=== PATIENT | male | born 1950 | race Caucasian/White ===

== ENCOUNTER 2017-10-09 19:15 | Emergency (ER) | payer MEDICARE, OTHER, SELFPAY ==
[2017-10-09 19:19] VITALS: BP 135/80; PULSE 91; RESP 16; TEMP 36.9; O2SAT 96
--- NOTE | 2017-10-09 19:52 | ED.GENADUL ---
Disposition Clinical Impression: Atopic dermatitis Disposition: HOME Condition: Stable Instructions: Dermatitis (ED) Additional Instructions: Apply the cream every 8 hours for the next 7 days if seeing improvement of symptoms. If symptoms worsen after 24 hours of use please stop cream immediately and contact her concrete finishing machine operator or primary care provider for reassessment. It is encouraged that you follow-up with them in the next 7 days for reexamination or earlier for worsening symptoms. For any fever chills, rapid spread of the rash, joint swelling, or severe concerns please feel free to return to the emergency department for reexamination. Referrals: [facility] [Outside] - 1 week (Please call your primary care provider at the [facility] or your concrete finishing machine operator for reexamination within the next week.) Medical Decision Making - Medical Decision Making Patient presenting to the emergency department for chief complaint of rash to his feet. Rash has an appearance of atopic dermatitis with some clear weeping but also has some petechia at the edge of the rash and is non-blanchable. Patient had been diagnosed with athlete's foot and use what he thought was a clotrimazole cream for 2 weeks which he only had progressing and worsening of symptoms. Patient did stop clotrimazole 3 days ago and is continued to have worsening of symptoms. Physical exam is benign except for mild papular rash on the flanks with some petechiae being seen on the right flank. Given petechial rash CBC was drawn but patient has no systemic symptoms of illness and so while rashes not clear in its nature some sort of dermatitis or possible reaction to the clotrimazole cream is considered. After review of CBC with differential that shows appropriate platelet count but mild anemia which is at patient's baseline patient reassessed. Patient had no new or worsening symptoms so plan to treat as dermatitis and give patient steroid cream to see if this resolves symptoms but patient was strongly encouraged to contact his primary care provider and/or concrete finishing machine operator for reassessment. Patient was also instructed that if he uses the hydrocortisone cream for 24 hours and notices any severe worsening of symptoms that he should stop this immediately and call for reassessment. Patient encouraged to return immediately to the emergency department for any significant change in his symptoms. After discussion of diagnosis and plan of care with patient patient agreed and stated no further needs, questions, or concerns at this time. History of Present Illness - General Chief complaint: RashLesion Stated complaint: REACTION ON FEET Time Seen by Provider: 10/09/17 19:30 Source: patient, RN notes reviewed Mode of arrival: ambulatory Limitations: no limitations - History of Present Illness Initial comments: Patient states a couple weeks ago he noticed some redness in between his toes which he saw a concrete finishing machine operator at the [facility] and she diagnosed him with athlete's foot and placed him on cream. He stopped this cream on Sunday when he noticed the redness worsening and traveling up his foot and after stopping the cream he continued and knows worsening symptoms yesterday and today with now rash area starting to weep clear fluid and continue to again spread further up the foot and ankle. Patient denies any fever chills, headache, difficulty breathing. 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 Onset/Timin -: week(s) Location: lower extremity (Feet) Associated Symptoms: denies other symptoms Treatments Prior to Arrival: none - Related Data Levothyroxine Sodium 75 mcg PO DAILY 04/29/15 Omeprazole 20 mg PO DAILY 04/29/15 Simvastatin 40 mg PO HS 04/29/15 Finasteride 5 mg PO DAILY AM 06/28/15 Tamsulosin HCl 0.4 mg PO DAILY AM 06/28/15 Trazodone HCl 100 mg PO HS PRN 06/28/15 Cyclobenzaprine [Flexeril] 10 mg PO HS PRN 12/07/16 Naproxen 500 mg PO BID PRN 12/07/16 Aspirin 81 mg PO DAILY #90 tab-cap 03/22/17 Docusate Sodium [Colace] 200 mg PO BID tab-cap 03/22/17 Ascorbic Acid [Vitamin C] 500 mg PO DAILY tab.chew 05/07/17 Cyanocobalamin (Vitamin B-12) [Vitamin B12] 500 mcg PO DAILY 05/07/17 Gabapentin 800 mg PO TID #270 tab-cap 05/07/17 Lidocaine/Menthol [[place] 4%-1% Patch] PRN 07/01/17 Cholecalciferol (Vitamin D3) [Vitamin D3] 1 tab PO DAILY 09/06/17 Risperidone 0 PO DAILY tab-cap 09/06/17 Allergies Allergy/AdvReac Type Severity Reaction Status Date / Time Milk Containing Products AdvReac Intermediate Nausea Unverified 10/09/17 19:21 Review of Systems Constitutional: denies: chills, fever, malaise Eyes: denies: vision change ENT: denies: throat pain Respiratory: denies: cough, shortness of breath Cardiovascular: edema (Chronic and ongoing no recent changes). denies: chest pain Gastrointestinal: denies: abdominal pain Musculoskeletal: denies: joint swelling Skin: as per HPI, rash Neurological: denies: headache Hematological/Lymphatic: denies: easy bleeding, easy bruising Past Medical History - Past Medical History Medical history: cancer, GERD, hyperlipidemia, seizures hypothyroidism, neuro myoclonis (tremors), prostate cancer, keloids, GERD, high cholesterol, L4-L5 stenosis Surgical history: other (cataracts, club foot as child, trigger release, cyst removed) - Social History Smoking status: never smoker Alcohol use: none Drug use: none Living Situation: lives with family General Exam - General Limitations: no limitations General appearance: alert, in no apparent distress - Head Head exam: Present: atraumatic, normocephalic, normal inspection - Eye Eye exam: Present: normal apperance - ENT ENT exam: Present: normal exam, normal orophraynx - Neck Neck exam: Present: normal inspection, full ROM. Absent: meningismus, lymphadenopathy - Respiratory Respiratory exam: Present: normal lung sounds bilaterally. Absent: respiratory distress - Cardiovascular Cardiovascular Exam: Present: regular rate, normal rhythm, normal heart sounds. Absent: tachycardia, systolic murmur, diastolic murmur, rubs, gallop, clicks - Extremities Exam Extremities exam: Present: pedal edema (1+ equal bilateral) - Back Exam Back exam: Present: rash noted (On bilateral flanks with some erythematous macules and small sporadic petechia) - Neurological Exam Neurological exam: Present: alert, oriented X3. Absent: altered - Skin Skin exam: Present: warm, petechiae (Beyond rash noted above on flanks patient also has erythematous scaly type rash on the feet with clear weeping and drainage from small fissures seen within the rash and then petechial redness coming up the foot. Rash is non-blanchable.). Absent: vesicles Course Vital Signs - 24 hr 10/09/17 19:19 Temperature 36.9 C Pulse 91 H Respiratory 16 Rate Blood Pressure 135/80 Pulse Oximetry 96
--- NOTE | 2017-10-09 19:57 | ED.GENADUL_ITS ---
Disposition Clinical Impression: Atopic dermatitis Disposition: HOME Condition: Stable Instructions: Dermatitis (ED) Additional Instructions: Apply the cream every 8 hours for the next 7 days if seeing improvement of symptoms. If symptoms worsen after 24 hours of use please stop cream immediately and contact her stevedoring supervisor or primary care provider for reassessment. It is encouraged that you follow-up with them in the next 7 days for reexamination or earlier for worsening symptoms. For any fever chills, rapid spread of the rash, joint swelling, or severe concerns please feel free to return to the emergency department for reexamination. Referrals: [facility] [Outside] - 1 week (Please call your primary care provider at the [facility] or your stevedoring supervisor for reexamination within the next week. ) Medical Decision Making - Medical Decision Making Patient presenting to the emergency department for chief complaint of rash to his feet. Rash has an appearance of atopic dermatitis with some clear weeping but also has some petechia at the edge of the rash and is non-blanchable. Patient had been diagnosed with athlete's foot and use what he thought was a clotrimazole cream for 2 weeks which he only had progressing and worsening of symptoms. Patient did stop clotrimazole 3 days ago and is continued to have worsening of symptoms. Physical exam is benign except for mild papular rash on the flanks with some petechiae being seen on the right flank. Given petechial rash CBC was drawn but patient has no systemic symptoms of illness and so while rashes not clear in its nature some sort of dermatitis or possible reaction to the clotrimazole cream is considered. After review of CBC with differential that shows appropriate platelet count but mild anemia which is at patient's baseline patient reassessed. Patient had no new or worsening symptoms so plan to treat as dermatitis and give patient steroid cream to see if this resolves symptoms but patient was strongly encouraged to contact his primary care provider and/or stevedoring supervisor for reassessment. Patient was also instructed that if he uses the hydrocortisone cream for 24 hours and notices any severe worsening of symptoms that he should stop this immediately and call for reassessment. Patient encouraged to return immediately to the emergency department for any significant change in his symptoms. After discussion of diagnosis and plan of care with patient patient agreed and stated no further needs, questions, or concerns at this time. History of Present Illness - General Chief complaint: RashLesion Stated complaint: REACTION ON FEET Time Seen by Provider: 10/09/17 19:30 Source: patient, RN notes reviewed Mode of arrival: ambulatory Limitations: no limitations - History of Present Illness Initial comments: Patient states a couple weeks ago he noticed some redness in between his toes which he saw a stevedoring supervisor at the [facility] and she diagnosed him with athlete's foot and placed him on cream. He stopped this cream on Sunday when he noticed the redness worsening and traveling up his foot and after stopping the cream he continued and knows worsening symptoms yesterday and today with now rash area starting to weep clear fluid and continue to again spread further up the foot and ankle. Patient denies any fever chills, headache, difficulty breathing. 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 Onset/Timin -: week(s) Location: lower extremity (Feet) Associated Symptoms: denies other symptoms Treatments Prior to Arrival: none - Related Data Levothyroxine Sodium 75 mcg PO DAILY 04/29/15 Omeprazole 20 mg PO DAILY 04/29/15 Simvastatin 40 mg PO HS 04/29/15 Finasteride 5 mg PO DAILY AM 06/28/15 Tamsulosin HCl 0.4 mg PO DAILY AM 06/28/15 Trazodone HCl 100 mg PO HS PRN 06/28/15 Cyclobenzaprine [Flexeril] 10 mg PO HS PRN 12/07/16 Naproxen 500 mg PO BID PRN 12/07/16 Aspirin 81 mg PO DAILY #90 tab-cap 03/22/17 Docusate Sodium [Colace] 200 mg PO BID tab-cap 03/22/17 Ascorbic Acid [Vitamin C] 500 mg PO DAILY tab.chew 05/07/17 Cyanocobalamin (Vitamin B-12) [Vitamin B12] 500 mcg PO DAILY 05/07/17 Gabapentin 800 mg PO TID #270 tab-cap 05/07/17 Lidocaine/Menthol [[place] 4%-1% Patch] PRN 07/01/17 Cholecalciferol (Vitamin D3) [Vitamin D3] 1 tab PO DAILY 09/06/17 Risperidone 0 PO DAILY tab-cap 09/06/17 Allergies Allergy/AdvReac Type Severity Reaction Status Date / Time Milk Containing Products AdvReac Intermediate Nausea Unverified 10/09/17 19:21 Review of Systems Constitutional: denies: chills, fever, malaise Eyes: denies: vision change ENT: denies: throat pain Respiratory: denies: cough, shortness of breath Cardiovascular: edema (Chronic and ongoing no recent changes). denies: chest pain Gastrointestinal: denies: abdominal pain Musculoskeletal: denies: joint swelling Skin: as per HPI, rash Neurological: denies: headache Hematological/Lymphatic: denies: easy bleeding, easy bruising Past Medical History - Past Medical History Medical history: cancer, GERD, hyperlipidemia, seizures hypothyroidism, neuro myoclonis (tremors), prostate cancer, keloids, GERD, high cholesterol, L4-L5 stenosis Surgical history: other (cataracts, club foot as child, trigger release, cyst removed) - Social History Smoking status: never smoker Alcohol use: none Drug use: none Living Situation: lives with family General Exam - General Limitations: no limitations General appearance: alert, in no apparent distress - Head Head exam: Present: atraumatic, normocephalic, normal inspection - Eye Eye exam: Present: normal apperance - ENT ENT exam: Present: normal exam, normal orophraynx - Neck Neck exam: Present: normal inspection, full ROM. Absent: meningismus, lymphadenopathy - Respiratory Respiratory exam: Present: normal lung sounds bilaterally. Absent: respiratory distress - Cardiovascular Cardiovascular Exam: Present: regular rate, normal rhythm, normal heart sounds. Absent: tachycardia, systolic murmur, diastolic murmur, rubs, gallop, clicks - Extremities Exam Extremities exam: Present: pedal edema (1+ equal bilateral) - Back Exam Back exam: Present: rash noted (On bilateral flanks with some erythematous macules and small sporadic petechia) - Neurological Exam Neurological exam: Present: alert, oriented X3. Absent: altered - Skin Skin exam: Present: warm, petechiae (Beyond rash noted above on flanks patient also has erythematous scaly type rash on the feet with clear weeping and drainage from small fissures seen within the rash and then petechial redness coming up the foot. Rash is non-blanchable.). Absent: vesicles Course Vital Signs - 24 hr 10/09/17 19:19 Temperature 36.9 C Pulse 91 H Respiratory 16 Rate Blood Pressure 135/80 Pulse Oximetry 96
[2017-10-09 21:00] LABS: Abs Immature Grans 0.02 k/cumm (0.0-0.09); Absolute Basophil Count 0.01 k/cumm (0.0-0.2); Absolute Eosinophil Count 0.35 k/cumm (0.0-0.7); Absolute Lymphocyte Count 1.45 k/cumm (1.2-3.4); Absolute Monocyte Count 0.49 k/cumm (0.11-0.7); Absolute Neutrophil Count 4.27 k/cumm (1.2-6.7); Basophils % 0.2; Eosinophils % 5.3; HCT 38.1 % (40.0-50.0); HGB 12.1 g/dL (13.5-17.5); Immature Grans % 0.3; Mean Corp. HGB Concentration 31.8 g/dL (32.0-36.0); Mean Corpuscular Hemoglobin 29.2 pg (27.0-33.0); Mean Corpuscular Volume 91.8 fL (80-95); Mean Platelet Volume 11.1 fL (8.0-11.0); Monocytes % 7.4; Neutrophils % 64.8; Platelet Count 154 x1000/uL (130-400); RBC 4.15 m/cumm (4.50-6.00); White Blood Cell Count 6.59 k/cumm (4.4-10.8)
[2017-10-09 21:24] VITALS: BP 140/74; PULSE 76; RESP 16; O2SAT 97
[2017-10-09] MEDS: Hydrocortisone 1% CR 30 GM TUBE TP (21:24)
== END 2017-10-09 20:30 | disposition home or self-care (01) ==
PROVIDERS: Nurse Practitioner Family; Emergency Provider Emergency Medicine
DX: L20.9 Atopic dermatitis, unspecified (principal)
CPT/HCPCS: 99283; 85025

== ENCOUNTER 2017-11-26 09:48 | Emergency (ER) | payer MEDICARE, OTHER, SELFPAY ==
[2017-11-26 10:01] VITALS: BP 135/76; PULSE 85; RESP 16; TEMP 36.5; O2SAT 98
--- NOTE | 2017-11-26 10:53 | W.ED.GENAD ---
Discharge Plan Disposition Patient Disposition: HOME Condition: Stable Discharge Details Chief Complaint: Nk/Back Pain Clinical Impression: Lumbago Primary Care Provider: [facility] ED Provider: Martin Duggan Meds and New Rx's Prescriptions: New methylprednisolone [Medrol (Skip)] 4 mg tablets,dose pack 4 mg PO DAILY Qty: 21 RF: 0 oxycodone-acetaminophen [Percocet] 5-325 mg tablet 1 tab PO .QHS PRN (Reason: acute low back pain) Qty: 7 RF: 0 No Action docusate sodium [Colace] 100 MG capsule 200 mg PO BID RF: 0 aspirin 81 MG tablet,chewable 81 mg PO DAILY Qty: 90 RF: 3 ascorbic acid (vitamin C) [[place] C] 500 MG tablet,chewable 500 mg PO DAILY RF: 0 cyanocobalamin (vitamin B-12) 2,500 MCG tablet 500 mcg PO DAILY RF: 0 gabapentin 800 MG tablet 800 mg PO TID Qty: 270 RF: 3 cholecalciferol (vitamin D3) 5,000 UNIT capsule 1 tab PO DAILY RF: 0 risperidone 0.5 MG tablet PO DAILY RF: 0 simvastatin 40 MG tablet 40 mg PO HS RF: 0 levothyroxine 75 MCG tablet 75 mcg PO DAILY RF: 0 omeprazole 20 MG capsule,delayed release(DR/EC) 20 mg PO DAILY RF: 0 trazodone 50 MG tablet 100 mg PO HS PRN (Reason: Anxiety) RF: 0 tamsulosin 0.4 MG capsule 0.4 mg PO DAILY AM RF: 0 finasteride 5 MG tablet 5 mg PO DAILY AM RF: 0 cyclobenzaprine 10 MG tablet 10 mg PO HS PRNRF: 0 naproxen 500 MG tablet 500 mg PO BID PRNRF: 0 lidocaine-menthol [LidAll] 1 EACH adhesive patch,medicated PRNRF: 0 Discharge Instructions Instructions: Low Back Strain (ED) Referrals: Luz Harmon MD [ [facility] STAFF PHYSICIAN] - Return if symptoms worsen Discharge Data Discharge Date/Time-TO BE ENTERED AT DEPARTURE: 11/26/17 11:13 Medical Decision Making I evaluated and treated Mr. Childs earlier this year with CT of spine. CT results reviewed from that time. Being he has no injury and I believe this to be an exacerbation of his chronic status back pain. I agreed to treat with Medrol dose skip and Percocet. Pt and informed of risk/benefits of opiate use. He agreed. I prescribed seven percocets for home use. We administered one here in the ED. He tolerated well. I advised to f/u with neurology. His explains the drive to [place] and [place] is to far to drive when he has this kind of pain. Advised to return to ED if symptoms worsen. We did not believe imaging was necessary today. HPI General Date/Time Provider Initiated Documentation: 11/26/17 10:00. Limitations to Documentation: no limitations. Information obtained by: patient and old records reviewed. History of Present Illness 67 year old M presents to the emergency department with the chief complaint of Excacerbation of low back pain, described as moderate, Quality is described as aching, and is localized to the back. Patient distal. Patient started experiencing this day(s) (3) and it has been constant and intermittent. No relieving factors improve symptom(s), No exacerbating factors reported . Patient notes no other symptoms.. HPI Narrative: 67 y/o male here with c/o exacerbation of low back pain. Pain worse over last three days. No injury. He denies any SOB, CP, or N/V/D. 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 He also is seeing local neurologist. He takes gabapentin daily. He tells me flexeril usually does not work and will not go back to PT. He has long history of back pain with spinal stenosis. [facility] is contempl[facility]. Related Data Home Medications Medication Instructions Recorded Confirmed levothyroxine 75 mcg PO DAILY 04/29/15 10/09/17 omeprazole 20 mg PO DAILY 04/29/15 10/09/17 simvastatin 40 mg PO HS 04/29/15 10/09/17 finasteride 5 mg PO DAILY AM 06/28/15 10/09/17 tamsulosin 0.4 mg PO DAILY AM 06/28/15 10/09/17 trazodone 100 mg PO HS PRN 06/28/15 10/09/17 cyclobenzaprine 10 mg PO HS PRN 12/07/16 10/09/17 naproxen 500 mg PO BID PRN 12/07/16 10/09/17 aspirin 81 mg PO DAILY #90 tab-cap 03/22/17 docusate sodium [Colace] 200 mg PO BID tab-cap 03/22/17 10/09/17 ascorbic acid (vitamin C) 500 mg PO DAILY tab.chew 05/07/17 10/09/17 [[place] C] cyanocobalamin (vitamin B-12) 500 mcg PO DAILY 05/07/17 10/09/17 gabapentin 800 mg PO TID #270 tab-cap 05/07/17 lidocaine-menthol [LidAll] PRN 07/01/17 cholecalciferol (vitamin D3) 1 tab PO DAILY 09/06/17 risperidone 0 PO DAILY tab-cap 09/06/17 methylprednisolone [Medrol (Skip)] 4 mg PO DAILY #21 dose pk 11/26/17 oxycodone-acetaminophen [Percocet] 1 tab PO .QHS PRN #7 tab 11/26/17 Previous Rx's Medication Instructions Recorded aspirin 81 mg PO DAILY #90 tab-cap 03/22/17 gabapentin 800 mg PO TID #270 tab-cap 05/07/17 methylprednisolone [Medrol (Skip)] 4 mg PO DAILY #21 dose pk 11/26/17 oxycodone-acetaminophen [Percocet] 1 tab PO .QHS PRN #7 tab 11/26/17 Allergies Allergy/AdvReac Type Severity Reaction Status Date / Time Milk Containing Products AdvReac Intermediate Nausea Unverified 10/09/17 19:21 General Stated Complaint: Nk/Back Pain JELANI: 4 Review of Systems Cardiovascular Reports system reviewed and no additional complaints, except as docu Respiratory Reports system reviewed and no additional complaints, except as docu Gastrointestinal Reports system reviewed and no additional complaints, except as docu Musculoskeletal Reports back pain and Reports radiating pain into limb (right) Neurologic Reports system reviewed and no additional complaints, except as docu PFSH Social History Smoking/Tobacco Use Status: Former Tobacco Use Exam Const General: cooperative and well groomed Nutritional Appearance: overweight Orientation: alert, awake and oriented x3 Neck Neck: normal visual inspection and full ROM Chest Chest: normal inspection of the chest Resp Effort & Inspection: normal respiratory effort Auscultation: clear to auscultation bilaterally Cardio Jugular venous pressure: no JVD Rate: regular rate Rhythm: regular rhythm GI Palpation: soft and nontender Back/Spine/Pelvis Back: no CVA tenderness Cervical Spine: cervical ROM normal and No step off deformity Thoracic/Lumbar Spine: bend over test abnormal (causes pain), thoraco-lumbar ROM limited (secondary to pain), thoracic spinal tenderness, lumbar spinal tenderness and straight leg raise positive (R>L) Pelvis: no pain with anterior-posterior compression Skin General skin exam: no rashes or lesions noted Neuro General: alert, awake and oriented x3 Speech: speech normal Motor: muscle tone normal throughout Course Vital Signs Temperature 36.5 C 11/26/17 10:01 Pulse 85 11/26/17 10:01 Respiratory Rate 16 11/26/17 10:01 Blood Pressure 135/76 11/26/17 10:01 Pulse Oximetry 98 11/26/17 10:01 Temperature 36.5 C 11/26/17 10:01 Temperature Source Temporal Artery Scan 11/26/17 10:01 Pulse 85 11/26/17 10:01 Respiratory Rate 16 11/26/17 10:01 Respiratory Effort 11/26/17 10:03 Blood Pressure 135/76 11/26/17 10:01 Blood Pressure Position Sitting 11/26/17 10:01 Pulse Oximetry 98 11/26/17 10:01 Oxygen Delivery Method Room Air 11/26/17 10:01 Oxygen Flow Rate 0 11/26/17 10:01 Pain Level 8 11/26/17 10:01
--- NOTE | 2017-11-26 10:57 | ED.GENADUL_ITS ---
Discharge Plan Disposition Patient Disposition: HOME Condition: Stable Discharge Details Chief Complaint: Nk/Back Pain Clinical Impression: Lumbago Primary Care Provider: [facility] ED Provider: Martin Duggan Meds and New Rx's Prescriptions: New methylprednisolone [Medrol (Skip)] 4 mg tablets,dose pack 4 mg PO DAILY Qty: 21 RF: 0 oxycodone-acetaminophen [Percocet] 5-325 mg tablet 1 tab PO .QHS PRN (Reason: acute low back pain) Qty: 7 RF: 0 No Action docusate sodium [Colace] 100 MG capsule 200 mg PO BID RF: 0 aspirin 81 MG tablet,chewable 81 mg PO DAILY Qty: 90 RF: 3 ascorbic acid (vitamin C) [[place] C] 500 MG tablet,chewable 500 mg PO DAILY RF: 0 cyanocobalamin (vitamin B-12) 2,500 MCG tablet 500 mcg PO DAILY RF: 0 gabapentin 800 MG tablet 800 mg PO TID Qty: 270 RF: 3 cholecalciferol (vitamin D3) 5,000 UNIT capsule 1 tab PO DAILY RF: 0 risperidone 0.5 MG tablet PO DAILY RF: 0 simvastatin 40 MG tablet 40 mg PO HS RF: 0 levothyroxine 75 MCG tablet 75 mcg PO DAILY RF: 0 omeprazole 20 MG capsule,delayed release(DR/EC) 20 mg PO DAILY RF: 0 trazodone 50 MG tablet 100 mg PO HS PRN (Reason: Anxiety) RF: 0 tamsulosin 0.4 MG capsule 0.4 mg PO DAILY AM RF: 0 finasteride 5 MG tablet 5 mg PO DAILY AM RF: 0 cyclobenzaprine 10 MG tablet 10 mg PO HS PRNRF: 0 naproxen 500 MG tablet 500 mg PO BID PRNRF: 0 lidocaine-menthol [LidAll] 1 EACH adhesive patch,medicated PRNRF: 0 Discharge Instructions Instructions: Low Back Strain (ED) Referrals: Luz Harmon MD [ [facility] STAFF PHYSICIAN] - Return if symptoms worsen Discharge Data Discharge Date/Time-TO BE ENTERED AT DEPARTURE: 11/26/17 11:13 Medical Decision Making I evaluated and treated Mr. Childs earlier this year with CT of spine. CT results reviewed from that time. Being he has no injury and I believe this to be an exacerbation of his chronic status back pain. I agreed to treat with Medrol dose skip and Percocet. Pt and informed of risk/benefits of opiate use. He agreed. I prescribed seven percocets for home use. We administered one here in the ED. He tolerated well. I advised to f/u with neurology. His explains the drive to [place] and [place] is to far to drive when he has this kind of pain. Advised to return to ED if symptoms worsen. We did not believe imaging was necessary today. HPI General Date/Time Provider Initiated Documentation: 11/26/17 10:00 . Limitations to Documentation: no limitations . Information obtained by: patient and old records reviewed . History of Present Illness 67 year old M presents to the emergency department with the chief complaint of Excacerbation of low back pain, described as moderate, Quality is described as aching, and is localized to the back. Patient distal. Patient started experiencing this day(s) (3) and it has been constant and intermittent. No relieving factors improve symptom(s), No exacerbating factors reported . Patient notes no other symptoms.. HPI Narrative: 67 y/o male here with c/o exacerbation of low back pain. Pain worse over last three days. No injury. He denies any SOB, CP, or N/V/D. 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 He also is seeing local neurologist. He takes gabapentin daily. He tells me flexeril usually does not work and will not go back to PT. He has long history of back pain with spinal stenosis. He is contemplating [facility]. Related Data Home Medications Medication Instructions Recorded Confirmed levothyroxine 75 mcg PO DAILY 04/29/15 10/09/17 omeprazole 20 mg PO DAILY 04/29/15 10/09/17 simvastatin 40 mg PO HS 04/29/15 10/09/17 finasteride 5 mg PO DAILY AM 06/28/15 10/09/17 tamsulosin 0.4 mg PO DAILY AM 06/28/15 10/09/17 trazodone 100 mg PO HS PRN 06/28/15 10/09/17 cyclobenzaprine 10 mg PO HS PRN 12/07/16 10/09/17 naproxen 500 mg PO BID PRN 12/07/16 10/09/17 aspirin 81 mg PO DAILY #90 tab-cap 03/22/17 docusate sodium [Colace] 200 mg PO BID tab-cap 03/22/17 10/09/17 ascorbic acid (vitamin C) 500 mg PO DAILY tab.chew 05/07/17 10/09/17 [[place] C] cyanocobalamin (vitamin B-12) 500 mcg PO DAILY 05/07/17 10/09/17 gabapentin 800 mg PO TID #270 tab-cap 05/07/17 lidocaine-menthol [LidAll] PRN 07/01/17 cholecalciferol (vitamin D3) 1 tab PO DAILY 09/06/17 risperidone 0 PO DAILY tab-cap 09/06/17 methylprednisolone [Medrol (Skip)] 4 mg PO DAILY #21 dose pk 11/26/17 oxycodone-acetaminophen [Percocet] 1 tab PO .QHS PRN #7 tab 11/26/17 Previous Rx's Medication Instructions Recorded aspirin 81 mg PO DAILY #90 tab-cap 03/22/17 gabapentin 800 mg PO TID #270 tab-cap 05/07/17 methylprednisolone [Medrol (Skip)] 4 mg PO DAILY #21 dose pk 11/26/17 oxycodone-acetaminophen [Percocet] 1 tab PO .QHS PRN #7 tab 11/26/17 Allergies Allergy/AdvReac Type Severity Reaction Status Date / Time Milk Containing Products AdvReac Intermediate Nausea Unverified 10/09/17 19:21 General Stated Complaint: Nk/Back Pain JELANI: 4 Review of Systems Cardiovascular Reports system reviewed and no additional complaints, except as docu Respiratory Reports system reviewed and no additional complaints, except as docu Gastrointestinal Reports system reviewed and no additional complaints, except as docu Musculoskeletal Reports back pain and Reports radiating pain into limb (right) Neurologic Reports system reviewed and no additional complaints, except as docu PFSH Social History Smoking/Tobacco Use Status: Former Tobacco Use Exam Const General: cooperative and well groomed Nutritional Appearance: overweight Orientation: alert, awake and oriented x3 Neck Neck: normal visual inspection and full ROM Chest Chest: normal inspection of the chest Resp Effort & Inspection: normal respiratory effort Auscultation: clear to auscultation bilaterally Cardio Jugular venous pressure: no JVD Rate: regular rate Rhythm: regular rhythm GI Palpation: soft and nontender Back/Spine/Pelvis Back: no CVA tenderness Cervical Spine: cervical ROM normal and No step off deformity Thoracic/Lumbar Spine: bend over test abnormal (causes pain), thoraco-lumbar ROM limited (secondary to pain), thoracic spinal tenderness, lumbar spinal tenderness and straight leg raise positive (R>L) Pelvis: no pain with anterior-posterior compression Skin General skin exam: no rashes or lesions noted Neuro General: alert, awake and oriented x3 Speech: speech normal Motor: muscle tone normal throughout Course Vital Signs Temperature 36.5 C 11/26/17 10:01 Pulse 85 11/26/17 10:01 Respiratory Rate 16 11/26/17 10:01 Blood Pressure 135/76 11/26/17 10:01 Pulse Oximetry 98 11/26/17 10:01 Temperature 36.5 C 11/26/17 10:01 Temperature Source Temporal Artery Scan 11/26/17 10:01 Pulse 85 11/26/17 10:01 Respiratory Rate 16 11/26/17 10:01 Respiratory Effort 11/26/17 10:03 Blood Pressure 135/76 11/26/17 10:01 Blood Pressure Position Sitting 11/26/17 10:01 Pulse Oximetry 98 11/26/17 10:01 Oxygen Delivery Method Room Air 11/26/17 10:01 Oxygen Flow Rate 0 11/26/17 10:01 Pain Level 8 11/26/17 10:01
[2017-11-26] MEDS: oxyCODONE 5 mg/Acetaminophen 325 mg TAB 1 TAB PO (10:58)
== END 2017-11-26 11:13 | disposition home or self-care (01) ==
PROVIDERS: Emergency Provider Nurse Practitioner Family
DX: M54.5 Low back pain (principal); G89.29 Other chronic pain
CPT/HCPCS: 99283

== ENCOUNTER → 2017-11-29 08:23 | Outpatient (BNVA) | payer MEDICARE, OTHER, SELFPAY | PROVIDERS: Visit Provider Psychiatry & Neurology Neurology | DX: R25.1 Tremor, unspecified (principal); R56.9 Unspecified convulsions; M54.5 Low back pain; G89.29 Other chronic pain; M54.41 Lumbago with sciatica, right side | CPT/HCPCS: 99214 ==

== ENCOUNTER 2018-03-05 22:49 | Emergency (ER) | payer MEDICARE, OTHER, SELFPAY ==
[2018-03-05 22:54] VITALS: BP 134/66; PULSE 80; RESP 16; TEMP 36.4; O2SAT 100
--- NOTE | 2018-03-05 23:04 | W.ED.GENAD ---
Discharge Plan Disposition Patient Disposition: HOME Condition: Fair Discharge Details Chief Complaint: Cellulitis Clinical Impression: Ingrown left big toenail Primary Care Provider: [facility] ED Provider: Amy Salinas Home Meds and New Rx's Prescriptions: Continued risperidone 1 mg tablet 1 mg PO TID PRNRF: 0 cetirizine 10 mg tablet 10 mg PO DAILY PRN (Reason: Allergies ) RF: 0 clobetasol 0.05 % cream 1 applic TP BID RF: 0 duloxetine 60 mg capsule,delayed release(DR/EC) 60 mg PO BID RF: 0 P and S (salicylic acid) 2 % shampoo 1 applic TP .COMPLEX RF: 0 docusate sodium [Colace] 100 MG capsule 200 mg PO BID RF: 0 aspirin 81 MG tablet,chewable 81 mg PO DAILY Qty: 90 RF: 3 ascorbic acid (vitamin C) [[place] C] 500 MG tablet,chewable 500 mg PO DAILY RF: 0 cyanocobalamin (vitamin B-12) 2,500 MCG tablet 500 mcg PO DAILY RF: 0 gabapentin 800 MG tablet 800 mg PO TID Qty: 270 RF: 3 cholecalciferol (vitamin D3) 5,000 UNIT capsule 1 tab PO DAILY RF: 0 simvastatin 40 MG tablet 40 mg PO HS RF: 0 levothyroxine 75 MCG tablet 75 mcg PO DAILY RF: 0 omeprazole 20 MG capsule,delayed release(DR/EC) 20 mg PO DAILY RF: 0 trazodone 50 MG tablet 100 mg PO HS PRN (Reason: Anxiety) RF: 0 tamsulosin 0.4 MG capsule 0.4 mg PO DAILY AM RF: 0 finasteride 5 MG tablet 5 mg PO DAILY AM RF: 0 cyclobenzaprine 10 MG tablet 10 mg PO HS PRNRF: 0 naproxen 500 MG tablet 500 mg PO BID PRNRF: 0 LidAll 1 EACH adhesive patch,medicated PRNRF: 0 Discharge Instructions Instructions: Ingrown Nail (ED) Additional Instructions: Warm soaks 4-5 times daily. Tylenol and/or ibuprofen as needed for discomfort. Monitor for signs of infection including redness, warmth, drainage, increased pain, fevers or chills. If these arise please seek care urgently once again. Please contact photo tech tomorrow to schedule follow-up appointment as soon as possible. [facility]errals: [facility] [Primary Care Provider] - Medical Decision Making Patient is a 67-year-old male presenting today, brought in by his , with chief complaint of medial sided left great toe pain that began approximately 2 hours prior to arrival. He reports that the pain is intermittent. Denies any fevers or chills. Denies any known trauma. Has poor toenails have baseline and sees photo tech regularly. States he was last seen by photo tech 1 month ago. cut back on the toenail to try and relieve some pressure, but this did not help with discomfort. On exam, patient has white, brittle nails at baseline. This does not appear acute. No erythema, warmth, discharge. No pain over the joint. Pain is strictly limited to the medial side of the great left toenail. At this point, I do not see any acute issues with the toenail. I advised warm soaks and follow-up with podiatry. He will call his photo tech tomorrow. He is not taking anything for his discomfort, he was given Tylenol and ibuprofen here. We discussed new/worsening symptoms when to seek care urgently once again. All of his questions and concerns were addressed and he is in agreement this plan HPI General Mode of arrival: wheelchair. Date/Time Provider Initiated Documentation: 03/05/18 23:00. Limitations to Documentation: no limitations. Information obtained by: patient and family. History of Present Illness 67 year old M presents to the emergency department with the chief complaint of left great toe, described as severe, with intensity rated at 10. Quality is described as burning, and is localized to the left and lower extremity. Patient reports no radiation. Patient started experiencing this hour(s) and it has been intermittent. No relieving factors improve symptom(s), Movement worsens symptoms . Patient notes denies fever/chills and rash. Patient did receive the following treatments prior to arrival, other ( cut nail) Related Data Home Medications Medication Instructions Recorded Confirmed levothyroxine 75 mcg PO DAILY 04/29/15 03/05/18 omeprazole 20 mg PO DAILY 04/29/15 03/05/18 simvastatin 40 mg PO HS 04/29/15 03/05/18 finasteride 5 mg PO DAILY AM 06/28/15 03/05/18 tamsulosin 0.4 mg PO DAILY AM 06/28/15 03/05/18 trazodone 100 mg PO HS PRN 06/28/15 03/05/18 cyclobenzaprine 10 mg PO HS PRN 12/07/16 03/05/18 naproxen 500 mg PO BID PRN 12/07/16 03/05/18 aspirin 81 mg PO DAILY #90 tab-cap 03/22/17 03/05/18 docusate sodium [Colace] 200 mg PO BID tab-cap 03/22/17 03/05/18 ascorbic acid (vitamin C) 500 mg PO DAILY tab.chew 05/07/17 03/05/18 [[place] C] cyanocobalamin (vitamin B-12) 500 mcg PO DAILY 05/07/17 03/05/18 gabapentin 800 mg PO TID #270 tab-cap 05/07/17 03/05/18 LidAll PRN 07/01/17 12/11/17 cholecalciferol (vitamin D3) 1 tab PO DAILY 09/06/17 03/05/18 cetirizine 10 mg tablet 10 mg PO DAILY PRN tab 12/06/17 03/05/18 risperidone 1 mg tablet 1 mg PO TID PRN tab 12/06/17 03/05/18 clobetasol 0.05 % topical cream 1 applic TP BID 12/07/17 03/05/18 duloxetine 60 mg capsule,delayed 60 mg PO BID cap 12/07/17 03/05/18 release salicylic acid 2 % shampoo 1 applic TP .COMPLEX 12/07/17 03/05/18 Previous Rx's Medication Instructions Recorded aspirin 81 mg PO DAILY #90 tab-cap 03/22/17 gabapentin 800 mg PO TID #270 tab-cap 05/07/17 Allergies Allergy/AdvReac Type Severity Reaction Status Date / Time Milk Containing Products AdvReac Intermediate Nausea Unverified 03/05/18 23:00 General Stated Complaint: Cellulitis JELANI: 4 Review of Systems Constitutional Reports as per HPI, Denies chills, Denies fever(s), Denies headache(s) and Denies weakness ENT Denies headache(s) Cardiovascular Reports as per HPI Respiratory Reports as per HPI and Denies cough Musculoskeletal Reports as per HPI and Reports numbness (history of peripheral neuropathy) Integumentary/Breasts Reports as per HPI, Denies rash and Denies wounds Neurologic Denies headache(s), Reports numbness (history of peripheral neuropathy) and Denies weakness [facility] Medical History Abnormal liver enzymes (Acute) Edema (Acute) Foot pain (Acute) Intervertebral disc disorder (Acute) Keloid scar (Acute) Lazy eye of right side (Acute) Myoclonus (Acute) Primary malignant neoplasm of prostate (Acute) Adult hypothyroidism (Chronic) Anxiety (Chronic) Cataract (Chronic) Cervicalgia (Chronic) Essential tremor (Chronic) Hyperlipidemia (Chronic) Low back pain (Chronic) Seizure disorder (Chronic) Thrombocytopenia (Chronic) Surgical History History of prostate biopsy (Acute) History of surgical removal of pilonidal cyst (Acute) History of cataract surgery (Chronic) Family History Mother Diabetes Alzheimer disease Social History household members: spouse lives independently: Yes number of children: 1 current occupational status: retired Smoking/Tobacco Use Status: Former Tobacco Use alcohol intake: current alcohol intake frequency: a few times a month substance use type: does not use Exam Extrem Left upper extremity: full ROM and normal capillary refill; abnormal to inspection (Patient has white, brittle looking nails baseline. No erythema, warmth, di) Course Vital Signs Temperature 36.4 C L 03/05/18 22:54 Pulse 80 03/05/18 22:54 Respiratory Rate 16 03/05/18 22:54 Blood Pressure 134/66 03/05/18 22:54 Pulse Oximetry 100 03/05/18 22:54 Temperature 36.4 C L 03/05/18 22:54 Temperature Source Skin 03/05/18 22:54 Pulse 80 03/05/18 22:54 Respiratory Rate 16 03/05/18 22:54 Respiratory Effort Non-Labored 03/05/18 22:59 Blood Pressure 134/66 03/05/18 22:54 Blood Pressure Position Sitting 03/05/18 22:54 Pulse Oximetry 100 03/05/18 22:54 Oxygen Delivery Method Room Air 03/05/18 22:54 Oxygen Flow Rate 0 03/05/18 22:54 Pain Level 10 03/05/18 22:54
[2018-03-05] MEDS: Acetaminophen 500 MG TAB 1000 MG PO (23:16)
[2018-03-05] MEDS: Ibuprofen 600 MG TAB PO (23:17)
[2018-03-05 23:21] VITALS: BP 134/66; PULSE 80; RESP 16; TEMP 36.4; O2SAT 100
--- NOTE | 2018-03-05 23:24 | ED.GENADUL_ITS ---
Discharge Plan Disposition Patient Disposition: HOME Condition: Fair Discharge Details Chief Complaint: Cellulitis Clinical Impression: Ingrown left big toenail Primary Care Provider: [facility] ED Provider: Amy Salinas Home Meds and New Rx's Prescriptions: Continued risperidone 1 mg tablet 1 mg PO TID PRNRF: 0 cetirizine 10 mg tablet 10 mg PO DAILY PRN (Reason: Allergies ) RF: 0 clobetasol 0.05 % cream 1 applic TP BID RF: 0 duloxetine 60 mg capsule,delayed release(DR/EC) 60 mg PO BID RF: 0 P and S (salicylic acid) 2 % shampoo 1 applic TP .COMPLEX RF: 0 docusate sodium [Colace] 100 MG capsule 200 mg PO BID RF: 0 aspirin 81 MG tablet,chewable 81 mg PO DAILY Qty: 90 RF: 3 ascorbic acid (vitamin C) [[place] C] 500 MG tablet,chewable 500 mg PO DAILY RF: 0 cyanocobalamin (vitamin B-12) 2,500 MCG tablet 500 mcg PO DAILY RF: 0 gabapentin 800 MG tablet 800 mg PO TID Qty: 270 RF: 3 cholecalciferol (vitamin D3) 5,000 UNIT capsule 1 tab PO DAILY RF: 0 simvastatin 40 MG tablet 40 mg PO HS RF: 0 levothyroxine 75 MCG tablet 75 mcg PO DAILY RF: 0 omeprazole 20 MG capsule,delayed release(DR/EC) 20 mg PO DAILY RF: 0 trazodone 50 MG tablet 100 mg PO HS PRN (Reason: Anxiety) RF: 0 tamsulosin 0.4 MG capsule 0.4 mg PO DAILY AM RF: 0 finasteride 5 MG tablet 5 mg PO DAILY AM RF: 0 cyclobenzaprine 10 MG tablet 10 mg PO HS PRNRF: 0 naproxen 500 MG tablet 500 mg PO BID PRNRF: 0 LidAll 1 EACH adhesive patch,medicated PRNRF: 0 Discharge Instructions Instructions: Ingrown Nail (ED) Additional Instructions: Warm soaks 4-5 times daily. Tylenol and/or ibuprofen as needed for discomfort. Monitor for signs of infection including redness, warmth, drainage, increased pain, fevers or chills. If these arise please seek care urgently once again. Please contact marine engine machinist tomorrow to schedule follow-up appointment as soon as possible. [facility]errals: [facility] [Primary Care Provider] - Medical Decision Making Patient is a 67-year-old male presenting today, brought in by his , with chief complaint of medial sided left great toe pain that began approximately 2 hours prior to arrival. He reports that the pain is intermittent. Denies any fevers or chills. Denies any known trauma. Has poor toenails have baseline and sees marine engine machinist regularly. States he was last seen by marine engine machinist 1 month ago. cut back on the toenail to try and relieve some pressure, but this did not help with discomfort. On exam, patient has white, brittle nails at baseline. This does not appear acute. No erythema, warmth, discharge. No pain over the joint. Pain is strictly limited to the medial side of the great left toenail. At this point, I do not see any acute issues with the toenail. I advised warm soaks and follow-up with podiatry. He will call his marine engine machinist tomorrow. He is not taking anything for his discomfort, he was given Tylenol and ibuprofen here. We discussed new/worsening symptoms when to seek care urgently once again. All of his questions and concerns were addressed and he is in agreement this plan HPI General Mode of arrival: wheelchair . Date/Time Provider Initiated Documentation: 03/05/18 23:00 . Limitations to Documentation: no limitations . Information obtained by: patient and family . History of Present Illness 67 year old M presents to the emergency department with the chief complaint of left great toe, described as severe, with intensity rated at 10. Quality is described as burning, and is localized to the left and lower extremity. Patient reports no radiation. Patient started experiencing this hour(s) and it has been intermittent. No relieving factors improve symptom(s), Movement worsens symptoms . Patient notes denies fever/chills and rash. Patient did receive the following treatments prior to arrival, other ( cut nail) Related Data Home Medications Medication Instructions Recorded Confirmed levothyroxine 75 mcg PO DAILY 04/29/15 03/05/18 omeprazole 20 mg PO DAILY 04/29/15 03/05/18 simvastatin 40 mg PO HS 04/29/15 03/05/18 finasteride 5 mg PO DAILY AM 06/28/15 03/05/18 tamsulosin 0.4 mg PO DAILY AM 06/28/15 03/05/18 trazodone 100 mg PO HS PRN 06/28/15 03/05/18 cyclobenzaprine 10 mg PO HS PRN 12/07/16 03/05/18 naproxen 500 mg PO BID PRN 12/07/16 03/05/18 aspirin 81 mg PO DAILY #90 tab-cap 03/22/17 03/05/18 docusate sodium [Colace] 200 mg PO BID tab-cap 03/22/17 03/05/18 ascorbic acid (vitamin C) 500 mg PO DAILY tab.chew 05/07/17 03/05/18 [[place] C] cyanocobalamin (vitamin B-12) 500 mcg PO DAILY 05/07/17 03/05/18 gabapentin 800 mg PO TID #270 tab-cap 05/07/17 03/05/18 LidAll PRN 07/01/17 12/11/17 cholecalciferol (vitamin D3) 1 tab PO DAILY 09/06/17 03/05/18 cetirizine 10 mg tablet 10 mg PO DAILY PRN tab 12/06/17 03/05/18 risperidone 1 mg tablet 1 mg PO TID PRN tab 12/06/17 03/05/18 clobetasol 0.05 % topical cream 1 applic TP BID 12/07/17 03/05/18 duloxetine 60 mg capsule,delayed 60 mg PO BID cap 12/07/17 03/05/18 release salicylic acid 2 % shampoo 1 applic TP .COMPLEX 12/07/17 03/05/18 Previous Rx's Medication Instructions Recorded aspirin 81 mg PO DAILY #90 tab-cap 03/22/17 gabapentin 800 mg PO TID #270 tab-cap 05/07/17 Allergies Allergy/AdvReac Type Severity Reaction Status Date / Time Milk Containing Products AdvReac Intermediate Nausea Unverified 03/05/18 23:00 General Stated Complaint: Cellulitis JELANI: 4 Review of Systems Constitutional Reports as per HPI, Denies chills, Denies fever(s), Denies headache(s) and Denies weakness ENT Denies headache(s) Cardiovascular Reports as per HPI Respiratory Reports as per HPI and Denies cough Musculoskeletal Reports as per HPI and Reports numbness (history of peripheral neuropathy) Integumentary/Breasts Reports as per HPI, Denies rash and Denies wounds Neurologic Denies headache(s), Reports numbness (history of peripheral neuropathy) and Denies weakness [facility] Medical History Abnormal liver enzymes (Acute) Edema (Acute) Foot pain (Acute) Intervertebral disc disorder (Acute) Keloid scar (Acute) Lazy eye of right side (Acute) Myoclonus (Acute) Primary malignant neoplasm of prostate (Acute) Adult hypothyroidism (Chronic) Anxiety (Chronic) Cataract (Chronic) Cervicalgia (Chronic) Essential tremor (Chronic) Hyperlipidemia (Chronic) Low back pain (Chronic) Seizure disorder (Chronic) Thrombocytopenia (Chronic) Surgical History History of prostate biopsy (Acute) History of surgical removal of pilonidal cyst (Acute) History of cataract surgery (Chronic) Family History Mother Diabetes Alzheimer disease Social History household members: spouse lives independently: Yes number of children: 1 current occupational status: retired Smoking/Tobacco Use Status: Former Tobacco Use alcohol intake: current alcohol intake frequency: a few times a month substance use type: does not use Exam Extrem Left upper extremity: full ROM and normal capillary refill; abnormal to inspection (Patient has white, brittle looking nails baseline. No erythema, warmth, di) Course Vital Signs Temperature 36.4 C L 03/05/18 22:54 Pulse 80 03/05/18 22:54 Respiratory Rate 16 03/05/18 22:54 Blood Pressure 134/66 03/05/18 22:54 Pulse Oximetry 100 03/05/18 22:54 Temperature 36.4 C L 03/05/18 22:54 Temperature Source Skin 03/05/18 22:54 Pulse 80 03/05/18 22:54 Respiratory Rate 16 03/05/18 22:54 Respiratory Effort Non-Labored 03/05/18 22:59 Blood Pressure 134/66 03/05/18 22:54 Blood Pressure Position Sitting 03/05/18 22:54 Pulse Oximetry 100 03/05/18 22:54 Oxygen Delivery Method Room Air 03/05/18 22:54 Oxygen Flow Rate 0 03/05/18 22:54 Pain Level 10 03/05/18 22:54
== END 2018-03-05 23:21 | disposition home or self-care (01) ==
LOC: ER 23:25
PROVIDERS: Emergency Provider Physician Assistant
DX: L60.0 Ingrowing nail (principal)
CPT/HCPCS: 99281

== ENCOUNTER 2018-05-11 17:30 | Emergency (ER) | payer MEDICARE, OTHER, SELFPAY ==
[2018-05-11 17:39] VITALS: BP 132/85; PULSE 98; RESP 14; TEMP 36.8; O2SAT 97
--- NOTE | 2018-05-11 18:02 | W.ED.GENAD ---
Discharge Plan Disposition Patient Disposition: HOME Condition: Stable Discharge Details Chief Complaint: EyeProblem Clinical Impression: Bacterial conjunctivitis Primary Care Provider: [facility] ED Provider: Abiola Waller Home Meds and New Rx's Prescriptions: Continued risperidone 1 mg tablet 1 mg PO TID PRNRF: 0 cetirizine 10 mg tablet 10 mg PO DAILY PRN (Reason: Allergies ) RF: 0 clobetasol 0.05 % cream 1 applic TP BID RF: 0 duloxetine 60 mg capsule,delayed release(DR/EC) 60 mg PO BID RF: 0 P and S (salicylic acid) 2 % shampoo 1 applic TP .COMPLEX RF: 0 docusate sodium [Colace] 100 MG capsule 200 mg PO BID RF: 0 aspirin 81 MG tablet,chewable 81 mg PO DAILY Qty: 90 RF: 3 ascorbic acid (vitamin C) [[place] C] 500 MG tablet,chewable 500 mg PO DAILY RF: 0 cyanocobalamin (vitamin B-12) 2,500 MCG tablet 500 mcg PO DAILY RF: 0 cholecalciferol (vitamin D3) 5,000 UNIT capsule 1 tab PO DAILY RF: 0 gabapentin 800 mg tablet 800 mg PO TID Qty: 270 RF: 3 simvastatin 40 MG tablet 40 mg PO HS RF: 0 levothyroxine 75 MCG tablet 75 mcg PO DAILY RF: 0 omeprazole 20 MG capsule,delayed release(DR/EC) 20 mg PO DAILY RF: 0 trazodone 50 MG tablet 100 mg PO HS PRN (Reason: Anxiety) RF: 0 tamsulosin 0.4 MG capsule 0.4 mg PO DAILY AM RF: 0 finasteride 5 MG tablet 5 mg PO DAILY AM RF: 0 cyclobenzaprine 10 MG tablet 10 mg PO HS PRNRF: 0 naproxen 500 MG tablet 500 mg PO BID PRNRF: 0 LidAll 1 EACH adhesive patch,medicated PRNRF: 0 Discharge Instructions Instructions: Conjunctivitis (ED) Additional Instructions: Apply 2 drops of the sulfacetamide solution to the left eye 4 times daily for the next 5 days. Call [facility] eye care on Sunday morning to schedule follow-up appointment for reevaluation. Engage in frequent handwashing and avoid close contact with other people as there is a high risk of contamination. Return immediately to the emergency department any worsening or new concerning symptoms. Discharge Data Discharge Physician: Abiola Waller Medical Decision Making 67-year-old male presents with left eye irritation, burning pain, yellow discharge and blurry vision since last night. Denies any known injury. Does not wear contacts. Wears glasses. Vitals within normal limits. OD 20/25, 0S 20/25. Patient appears nontoxic. No focal deficits. Left eye conjunctival injection with clear discharge. PERRLA. EOMI. No foreign body noted. Appears consistent likely with bacterial conjunctivitis. Will place 2 drops of sulfacetamide in left eye and send home with bottle to place 2 drops 4 times daily for the next 3-5 days. Patient instructed to follow-up with [facility] on Sunday and return here at any time if worse. HPI General Mode of arrival: ambulatory. Date/Time Provider Initiated Documentation: 05/11/18 17:45. Limitations to Documentation: no limitations. Information obtained by: patient. HPI Narrative: Patient is a 67-year-old male who presents the ED with a complaint of left eye irritation, burning pain, yellow discharge and blurry vision since last night. Denies any known contacts with conjunctivitis. He denies any significant headache, chest pain, shortness of breath, neck pain or eye injury. Related Data Home Medications Medication Instructions Recorded Confirmed levothyroxine 75 mcg PO DAILY 04/29/15 03/05/18 omeprazole 20 mg PO DAILY 04/29/15 03/05/18 simvastatin 40 mg PO HS 04/29/15 03/05/18 finasteride 5 mg PO DAILY AM 06/28/15 03/05/18 tamsulosin 0.4 mg PO DAILY AM 06/28/15 03/05/18 trazodone 100 mg PO HS PRN 06/28/15 03/05/18 cyclobenzaprine 10 mg PO HS PRN 12/07/16 03/05/18 naproxen 500 mg PO BID PRN 12/07/16 03/05/18 aspirin 81 mg PO DAILY #90 tab-cap 03/22/17 03/05/18 docusate sodium [Colace] 200 mg PO BID tab-cap 03/22/17 03/05/18 ascorbic acid (vitamin C) 500 mg PO DAILY tab.chew 05/07/17 03/05/18 [[place] C] cyanocobalamin (vitamin B-12) 500 mcg PO DAILY 05/07/17 03/05/18 LidAll PRN 07/01/17 12/11/17 cholecalciferol (vitamin D3) 1 tab PO DAILY 09/06/17 03/05/18 cetirizine 10 mg tablet 10 mg PO DAILY PRN tab 12/06/17 03/05/18 risperidone 1 mg tablet 1 mg PO TID PRN tab 12/06/17 03/05/18 clobetasol 0.05 % topical cream 1 applic TP BID 12/07/17 03/05/18 duloxetine 60 mg capsule,delayed 60 mg PO BID cap 12/07/17 03/05/18 release salicylic acid 2 % shampoo 1 applic TP .COMPLEX 12/07/17 03/05/18 gabapentin 800 mg tablet 800 mg PO TID #270 tab-cap 05/06/18 Previous Rx's Medication Instructions Recorded aspirin 81 mg PO DAILY #90 tab-cap 03/22/17 gabapentin 800 mg tablet 800 mg PO TID #270 tab-cap 05/06/18 Allergies Allergy/AdvReac Type Severity Reaction Status Date / Time Milk Containing Products AdvReac Intermediate Nausea Unverified 05/11/18 17:43 General Stated Complaint: EyeProblem JELANI: 5 Review of Systems Review of Systems All systems reviewed & are unremarkable except as noted in HPI and below Constitutional Reports as per HPI, Denies chills and Denies fever(s) Eyes Reports blurry vision, Reports eye discharge, Reports irritation and Reports eye pain ENT Denies dizziness, Denies sore throat and Denies throat swelling Cardiovascular Denies chest pain and Denies dyspnea Respiratory Denies cough and Denies dyspnea Gastrointestinal Denies abdominal pain, Denies diarrhea and Denies vomiting Genitourinary Denies hematuria and Denies dysuria Musculoskeletal Denies back pain and Denies numbness Integumentary/Breasts Denies lesions and Denies rash Neurologic Denies dizziness, Denies focal weakness and Denies numbness Allergic/Immunologic Denies throat swelling [facility] Medical History Abnormal liver enzymes (Acute) Edema (Acute) Foot pain (Acute) Intervertebral disc disorder (Acute) Keloid scar (Acute) Lazy eye of right side (Acute) Myoclonus (Acute) Primary malignant neoplasm of prostate (Acute) Adult hypothyroidism (Chronic) Anxiety (Chronic) Cataract (Chronic) Cervicalgia (Chronic) Essential tremor (Chronic) Hyperlipidemia (Chronic) Low back pain (Chronic) Seizure disorder (Chronic) Thrombocytopenia (Chronic) Surgical History History of prostate biopsy (Acute) History of surgical removal of pilonidal cyst (Acute) History of cataract surgery (Chronic) Family History Mother Diabetes Alzheimer disease Social History Smoking/Tobacco Use Status: Former Tobacco Use Alcohol Intake: current Alcohol Intake frequency: a few times a month Drug use: Never Substance use type: does not use Household members: spouse Number of Children: 1 What type of physical activity do you participate in: none Do you feel safe at home: Yes Do you feel safe in your relationship?: Yes Exam Const General: cooperative, healthy appearing and no acute distress HENMT Head: normal to inspection Mouth: oral mucosae normal Eyes General: appearance normal, both eyes and all related structures Periorbital: periorbital findings normal Eyelids: eyelids normal Conjunctivae: conjunctival abnormality left conjunctival injection diffuse and discharge other (clear) Cornea: corneas normal Pupils: PERRL EOM: EOM intact bilaterally Neck Neck: normal visual inspection Resp Effort & Inspection: normal respiratory effort and able to speak in complete sentences Cardio Rate: regular rate Skin General skin exam: no rashes or lesions noted Neuro General: alert, awake and oriented x3 Motor: muscle tone normal throughout Extrem General: normal to inspection and full ROM Psych Appearance: grossly normal Affect: normal affect Course Vital Signs Temperature 98.2 F 05/11/18 17:39 Pulse 98 H 05/11/18 17:39 Respiratory Rate 14 05/11/18 17:39 Blood Pressure 132/85 05/11/18 17:39 Pulse Oximetry 97 05/11/18 17:39 Temperature 98.2 F 05/11/18 17:39 Temperature Source Temporal Artery Scan 05/11/18 17:39 Pulse 98 H 05/11/18 17:39 Respiratory Rate 14 05/11/18 17:39 Respiratory Effort Non-Labored 05/11/18 17:40 Blood Pressure 132/85 05/11/18 17:39 Blood Pressure Position Sitting 05/11/18 17:39 Pulse Oximetry 97 05/11/18 17:39 Oxygen Delivery Method Room Air 05/11/18 17:39 Oxygen Flow Rate 0 05/11/18 17:39 Pain Level 5 05/11/18 17:39
--- NOTE | 2018-05-11 18:08 | ED.GENADUL_ITS ---
Discharge Plan Disposition Patient Disposition: HOME Condition: Stable Discharge Details Chief Complaint: EyeProblem Clinical Impression: Bacterial conjunctivitis Primary Care Provider: [facility],[place] ED Provider: Abiola Waller Home Meds and New Rx's Prescriptions: Continued risperidone 1 mg tablet 1 mg PO TID PRNRF: 0 cetirizine 10 mg tablet 10 mg PO DAILY PRN (Reason: Allergies ) RF: 0 clobetasol 0.05 % cream 1 applic TP BID RF: 0 duloxetine 60 mg capsule,delayed release(DR/EC) 60 mg PO BID RF: 0 P and S (salicylic acid) 2 % shampoo 1 applic TP .COMPLEX RF: 0 docusate sodium [Colace] 100 MG capsule 200 mg PO BID RF: 0 aspirin 81 MG tablet,chewable 81 mg PO DAILY Qty: 90 RF: 3 ascorbic acid (vitamin C) [[place] C] 500 MG tablet,chewable 500 mg PO DAILY RF: 0 cyanocobalamin (vitamin B-12) 2,500 MCG tablet 500 mcg PO DAILY RF: 0 cholecalciferol (vitamin D3) 5,000 UNIT capsule 1 tab PO DAILY RF: 0 gabapentin 800 mg tablet 800 mg PO TID Qty: 270 RF: 3 simvastatin 40 MG tablet 40 mg PO HS RF: 0 levothyroxine 75 MCG tablet 75 mcg PO DAILY RF: 0 omeprazole 20 MG capsule,delayed release(DR/EC) 20 mg PO DAILY RF: 0 trazodone 50 MG tablet 100 mg PO HS PRN (Reason: Anxiety) RF: 0 tamsulosin 0.4 MG capsule 0.4 mg PO DAILY AM RF: 0 finasteride 5 MG tablet 5 mg PO DAILY AM RF: 0 cyclobenzaprine 10 MG tablet 10 mg PO HS PRNRF: 0 naproxen 500 MG tablet 500 mg PO BID PRNRF: 0 LidAll 1 EACH adhesive patch,medicated PRNRF: 0 Discharge Instructions Instructions: Conjunctivitis (ED) Additional Instructions: Apply 2 drops of the sulfacetamide solution to the left eye 4 times daily for the next 5 days. Call [facility] eye care on Sunday morning to schedule follow-up appointment for reevaluation. Engage in frequent handwashing and avoid close contact with other people as there is a high risk of contamination. Return immediately to the emergency department any worsening or new concerning symptoms. Discharge Data Discharge Physician: Abiola Waller Medical Decision Making 67-year-old male presents with left eye irritation, burning pain, yellow discharge and blurry vision since last night. Denies any known injury. Does not wear contacts. Wears glasses. Vitals within normal limits. OD 20/25, 0S 20/25. Patient appears nontoxic. No focal deficits. Left eye conjunctival injection with clear discharge. PERRLA. EOMI. No foreign body noted. Appears consistent likely with bacterial conjunctivitis. Will place 2 drops of sulfacetamide in left eye and send home with bottle to place 2 drops 4 times daily for the next 3-5 days. Patient instructed to follow-up with [facility] on Sunday and return here at any time if worse. HPI General Mode of arrival: ambulatory . Date/Time Provider Initiated Documentation: 05/11/18 17:45 . Limitations to Documentation: no limitations . Information obtained by: patient . HPI Narrative: Patient is a 67-year-old male who presents the ED with a complaint of left eye irritation, burning pain, yellow discharge and blurry vision since last night. Denies any known contacts with conjunctivitis. He denies any significant headache, chest pain, shortness of breath, neck pain or eye injury. Related Data Home Medications Medication Instructions Recorded Confirmed levothyroxine 75 mcg PO DAILY 04/29/15 03/05/18 omeprazole 20 mg PO DAILY 04/29/15 03/05/18 simvastatin 40 mg PO HS 04/29/15 03/05/18 finasteride 5 mg PO DAILY AM 06/28/15 03/05/18 tamsulosin 0.4 mg PO DAILY AM 06/28/15 03/05/18 trazodone 100 mg PO HS PRN 06/28/15 03/05/18 cyclobenzaprine 10 mg PO HS PRN 12/07/16 03/05/18 naproxen 500 mg PO BID PRN 12/07/16 03/05/18 aspirin 81 mg PO DAILY #90 tab-cap 03/22/17 03/05/18 docusate sodium [Colace] 200 mg PO BID tab-cap 03/22/17 03/05/18 ascorbic acid (vitamin C) 500 mg PO DAILY tab.chew 05/07/17 03/05/18 [[place] C] cyanocobalamin (vitamin B-12) 500 mcg PO DAILY 05/07/17 03/05/18 LidAll PRN 07/01/17 12/11/17 cholecalciferol (vitamin D3) 1 tab PO DAILY 09/06/17 03/05/18 cetirizine 10 mg tablet 10 mg PO DAILY PRN tab 12/06/17 03/05/18 risperidone 1 mg tablet 1 mg PO TID PRN tab 12/06/17 03/05/18 clobetasol 0.05 % topical cream 1 applic TP BID 12/07/17 03/05/18 duloxetine 60 mg capsule,delayed 60 mg PO BID cap 12/07/17 03/05/18 release salicylic acid 2 % shampoo 1 applic TP .COMPLEX 12/07/17 03/05/18 gabapentin 800 mg tablet 800 mg PO TID #270 tab-cap 05/06/18 Previous Rx's Medication Instructions Recorded aspirin 81 mg PO DAILY #90 tab-cap 03/22/17 gabapentin 800 mg tablet 800 mg PO TID #270 tab-cap 05/06/18 Allergies Allergy/AdvReac Type Severity Reaction Status Date / Time Milk Containing Products AdvReac Intermediate Nausea Unverified 05/11/18 17:43 General Stated Complaint: EyeProblem JELANI: 5 Review of Systems Review of Systems All systems reviewed & are unremarkable except as noted in HPI and below Constitutional Reports as per HPI, Denies chills and Denies fever(s) Eyes Reports blurry vision, Reports eye discharge, Reports irritation and Reports eye pain ENT Denies dizziness, Denies sore throat and Denies throat swelling Cardiovascular Denies chest pain and Denies dyspnea Respiratory Denies cough and Denies dyspnea Gastrointestinal Denies abdominal pain, Denies diarrhea and Denies vomiting Genitourinary Denies hematuria and Denies dysuria Musculoskeletal Denies back pain and Denies numbness Integumentary/Breasts Denies lesions and Denies rash Neurologic Denies dizziness, Denies focal weakness and Denies numbness Allergic/Immunologic Denies throat swelling [facility] Medical History Abnormal liver enzymes (Acute) Edema (Acute) Foot pain (Acute) Intervertebral disc disorder (Acute) Keloid scar (Acute) Lazy eye of right side (Acute) Myoclonus (Acute) Primary malignant neoplasm of prostate (Acute) Adult hypothyroidism (Chronic) Anxiety (Chronic) Cataract (Chronic) Cervicalgia (Chronic) Essential tremor (Chronic) Hyperlipidemia (Chronic) Low back pain (Chronic) Seizure disorder (Chronic) Thrombocytopenia (Chronic) Surgical History History of prostate biopsy (Acute) History of surgical removal of pilonidal cyst (Acute) History of cataract surgery (Chronic) Family History Mother Diabetes Alzheimer disease Social History Smoking/Tobacco Use Status: Former Tobacco Use Alcohol Intake: current Alcohol Intake frequency: a few times a month Drug use: Never Substance use type: does not use Household members: spouse Number of Children: 1 What type of physical activity do you participate in: none Do you feel safe at home: Yes Do you feel safe in your relationship?: Yes Exam Const General: cooperative, healthy appearing and no acute distress HENMT Head: normal to inspection Mouth: oral mucosae normal Eyes General: appearance normal, both eyes and all related structures Periorbital: periorbital findings normal Eyelids: eyelids normal Conjunctivae: conjunctival abnormality left conjunctival injection diffuse and discharge other (clear) Cornea: corneas normal Pupils: PERRL EOM: EOM intact bilaterally Neck Neck: normal visual inspection Resp Effort & Inspection: normal respiratory effort and able to speak in complete sentences Cardio Rate: regular rate Skin General skin exam: no rashes or lesions noted Neuro General: alert, awake and oriented x3 Motor: muscle tone normal throughout Extrem General: normal to inspection and full ROM Psych Appearance: grossly normal Affect: normal affect Course Vital Signs Temperature 98.2 F 05/11/18 17:39 Pulse 98 H 05/11/18 17:39 Respiratory Rate 14 05/11/18 17:39 Blood Pressure 132/85 05/11/18 17:39 Pulse Oximetry 97 05/11/18 17:39 Temperature 98.2 F 05/11/18 17:39 Temperature Source Temporal Artery Scan 05/11/18 17:39 Pulse 98 H 05/11/18 17:39 Respiratory Rate 14 05/11/18 17:39 Respiratory Effort Non-Labored 05/11/18 17:40 Blood Pressure 132/85 05/11/18 17:39 Blood Pressure Position Sitting 05/11/18 17:39 Pulse Oximetry 97 05/11/18 17:39 Oxygen Delivery Method Room Air 05/11/18 17:39 Oxygen Flow Rate 0 05/11/18 17:39 Pain Level 5 05/11/18 17:39
== END 2018-05-11 18:19 | disposition home or self-care (01) ==
PROVIDERS: Emergency Provider Physician Assistant
DX: H10.89 Other conjunctivitis (principal)
CPT/HCPCS: 99283

== ENCOUNTER → 2018-06-04 13:38 | Outpatient (BNVA) | payer MEDICARE, OTHER, SELFPAY | PROVIDERS: Visit Provider Psychiatry & Neurology Neurology | DX: R25.1 Tremor, unspecified (principal); R56.9 Unspecified convulsions | CPT/HCPCS: 99213 ==

== ENCOUNTER → 2019-06-04 07:48 | Outpatient (BNVA) | payer MEDICARE, OTHER, SELFPAY | PROVIDERS: Visit Provider Psychiatry & Neurology Neurology | DX: R69 Illness, unspecified (principal) ==

== ENCOUNTER → 2019-06-19 07:45 | Outpatient (BNVA) | payer MEDICARE, OTHER, SELFPAY | PROVIDERS: Visit Provider Psychiatry & Neurology Neurology | DX: R25.1 Tremor, unspecified (principal); R56.9 Unspecified convulsions | CPT/HCPCS: 99213; 99442 ==

== ENCOUNTER → 2019-07-31 08:45 | Outpatient (BNVA) | payer MEDICARE, OTHER, SELFPAY | PROVIDERS: Visit Provider Psychiatry & Neurology Neurology | DX: R25.1 Tremor, unspecified (principal); M25.511 Pain in right shoulder; R56.9 Unspecified convulsions | CPT/HCPCS: 99214 ==

== ENCOUNTER → 2019-09-11 10:26 | Outpatient (BNVA) | payer MEDICARE, OTHER, SELFPAY | PROVIDERS: Visit Provider Psychiatry & Neurology Neurology | DX: G25.3 Myoclonus (principal); R56.9 Unspecified convulsions; M25.511 Pain in right shoulder | CPT/HCPCS: 99213 ==

== ENCOUNTER → 2019-12-04 12:54 | Outpatient (BNVA) | payer MEDICARE, OTHER, SELFPAY | PROVIDERS: Visit Provider Psychiatry & Neurology Neurology | DX: R25.1 Tremor, unspecified (principal); R56.9 Unspecified convulsions | CPT/HCPCS: 99213 ==

== ENCOUNTER 2019-12-05 13:05 | Outpatient (CLI) | payer MEDICARE, OTHER, SELFPAY ==
--- NOTE | 2019-12-08 16:48 | PDOC.EEG ---
Neurology EEG EEG: [facility] Department of Neurology LONG-TERM AMBULATORY EEG REPORT Date of Recordin12/05/19 at 13:19:50 to 12/06/19 at 13:38:24 Interpreting Physician: Dr. Luz Harmon PCP/Referring Provider: Dr. Dustin Vitale, [facility] Reason for study: Mr. Childs is a 69 year-old man with a history of spells of loss of body control/hypotonia followed by excessive bilateral UE tremors, concerning for seizure activity. He has a known history of functional +/- epileptic seizures. Current Medications: Home Medications Medication Instructions Recorded Confirmed Type levothyroxine 75 mcg PO DAILY 04/29/15 12/04/19 History omeprazole 20 mg PO DAILY 04/29/15 12/04/19 History simvastatin 40 mg PO HS 04/29/15 12/04/19 History finasteride 5 mg PO DAILY AM 06/28/15 12/04/19 History tamsulosin 0.4 mg PO DAILY AM 06/28/15 12/04/19 History trazodone 100 mg PO HS PRN 06/28/15 12/04/19 History cyclobenzaprine 10 mg PO HS PRN 12/07/16 12/04/19 History aspirin 81 mg PO DAILY #90 tab-cap 03/22/17 12/04/19 Rx ascorbic acid (vitamin C) 500 mg PO DAILY tab.chew 05/07/17 12/04/19 History [[place] C] cyanocobalamin (vitamin B-12) 500 mcg PO DAILY 05/07/17 12/04/19 History LidAll PRN 07/01/17 12/04/19 History cholecalciferol (vitamin D3) 1 tab PO DAILY 09/06/17 12/04/19 History risperidone 1 mg tablet 1 mg PO TID PRN tab 12/06/17 12/04/19 History duloxetine 60 mg capsule,delayed 60 mg PO BID cap 12/07/17 12/04/19 History release salicylic acid 2 % shampoo 1 applic TP .COMPLEX 12/07/17 12/04/19 History gabapentin 800 mg tablet 800 mg PO TID #270 tab-cap 05/20/19 12/04/19 Rx naproxen 500 mg tablet 500 mg PO BID 12/04/19 12/04/19 History METHODS: An 18-channel digitized electroencephalogram was recorded in the ambulatory setting with video. The 10/20 international system of electrode placement was used and bipolar and referential electrode montages were recorded. In addition to EEG the patient was monitored for EKG and by video. Activation procedures of photic stimulation and hyperventilation were performed if applicable. The duration of the recording was 24 hours. DESCRIPTION OF EEG: Waking background activity: During maximal wakefulness a 10-Hz posterior background rhythm was present which was well-modulated, symmetrical, reactive to eye opening, and of moderate voltage. Faster frequencies were present in the bilateral anterior head regions. There was a normal anterior-posterior voltage gradient. Drowsy and sleeping background activity: During drowsiness, there was attenuation of the posterior dominant background rhythm and vertex waves. Normal stage II and III sleep was present with symmetrical sleep spindles, K-complexes, and vertex waves with slowing of the background rhythm to delta/theta frequencies. REM sleep manifested by rapid lateral eye movements and faster background rhythms was recorded. Arousal was unremarkable. Interictal abnormalities: none. Ictal findings: No events recorded/captured. Activating Procedures: Photic stimulation was performed which produced no posterior driving response. Hyperventilation was not performed. EKG: EKG revealed normal sinus rhythm. INTERPRETATION: This long-term EEG is normal during the awake and sleep states as well as during the activation procedures. PRIOR EEG: -EEG (03/12/15 at [facility]): normal in the awake and drowsy states. 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 CLINICAL CORRELATION: No focal regions of cerebral dysfunction or epileptiform activity was present. No typical events were captured. Epilepsy remains a clinical diagnosis and a normal EEG does not rule out epilepsy. Clinical correlation is advised. Luz Harmon MD
== END 2019-12-05 13:25 ==
PROVIDERS: Visit Provider Psychiatry & Neurology Neurology
DX: R25.1 Tremor, unspecified (principal); R29.818 Other symptoms and signs involving the nervous system; F44.5 Conversion disorder with seizures or convulsions
CPT/HCPCS: 95714; 95720

== ENCOUNTER → 2019-12-09 14:18 | Outpatient (BNVA) | payer MEDICARE, OTHER, SELFPAY | PROVIDERS: Visit Provider Psychiatry & Neurology Neurology | DX: R69 Illness, unspecified (principal) ==

== ENCOUNTER → 2019-12-29 10:16 | Outpatient (BNVA) | payer MEDICARE, OTHER, SELFPAY | PROVIDERS: Visit Provider Psychiatry & Neurology Neurology | DX: R68.89 Other general symptoms and signs (principal); R25.1 Tremor, unspecified; R56.9 Unspecified convulsions | CPT/HCPCS: 99213 ==

== ENCOUNTER → 2020-04-26 07:53 | Outpatient (BNVA) | payer MEDICARE, OTHER, SELFPAY | PROVIDERS: Visit Provider Psychiatry & Neurology Neurology | DX: R68.89 Other general symptoms and signs (principal); R25.1 Tremor, unspecified; R56.9 Unspecified convulsions | CPT/HCPCS: 99442 ==

== ENCOUNTER → 2020-05-31 10:20 | Outpatient (BNVA) | payer MEDICARE, OTHER, SELFPAY | PROVIDERS: Visit Provider Psychiatry & Neurology Neurology | DX: R68.89 Other general symptoms and signs (principal); R25.1 Tremor, unspecified; R56.9 Unspecified convulsions | CPT/HCPCS: 99214 ==

== ENCOUNTER → 2020-11-29 10:00 | Outpatient (BNVA) | payer MEDICARE, OTHER, SELFPAY | PROVIDERS: Visit Provider Psychiatry & Neurology Neurology | DX: R68.89 Other general symptoms and signs (principal); R56.9 Unspecified convulsions; G25.0 Essential tremor; Z79.899 Other long term (current) drug therapy | CPT/HCPCS: 99213 ==

== ENCOUNTER → 2021-05-25 09:58 | Outpatient (BNVA) | payer MEDICARE, OTHER, SELFPAY | PROVIDERS: Visit Provider Psychiatry & Neurology Neurology | DX: R41.89 Other symptoms and signs involving cognitive functions and awareness (principal); R56.9 Unspecified convulsions; R25.1 Tremor, unspecified | CPT/HCPCS: 99213 ==

== ENCOUNTER → 2022-05-24 10:53 | Outpatient (BNVA) | payer MEDICARE, OTHER, SELFPAY | PROVIDERS: Visit Provider Psychiatry & Neurology Neurology | DX: R41.3 Other amnesia (principal); R56.9 Unspecified convulsions; G25.0 Essential tremor | CPT/HCPCS: 99214 ==

== ENCOUNTER 2022-07-23 17:50 | Emergency (ER) | payer MEDICARE, OTHER, SELFPAY ==
[2022-07-23 17:54] VITALS: BP 151/72; PULSE 78; RESP 18; TEMP 36.8; O2SAT 94
--- NOTE | 2022-07-23 18:00 | DI.CT_ITS ---
Exam(s) CT HEAD WO EXAM: CT HEAD WO CLINICAL HISTORY: Fall, headache. TECHNIQUE: Imaging Protocol: Axial computed tomography images with coronal and sagittal reformatted images were created and reviewed COMPARISON: CT HEAD WITHOUT CONTRAST from 12/08/2016 FINDINGS: There are no skull fractures. There is no fluid in the visualized paranasal sinuses. There is no evidence of intracranial hemorrhage, mass effect, or shift of midline structures. There are no extra-axial fluid collections. The ventricles are not enlarged or shifted and there is no blo od within the ventricular system nor within the basal cisterns. There is focal encephalomalacia in the right occipital lobe, unchanged from November 2016, indicating prior infarct this level. IMPRESSION: No acute intracranial findings on this noninfused CT scan of the brain. 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 RADIATION DOSE DELIVERED: 828.79mGy.cm Total DLP DATA REPOSITORY: All CT scans at this facility are submitted to the National Radiology Data Registry (NRDR) Dose Index Registry (DIR) with the [employer] (A[employer]). RADIATION OPTIMIZATION: All CT scans at this facility use at least one of these dose optimization te chniques: automated exposure control; mA and/or kV adjustment per patient size (includes targeted exa ms where dose is matched to clinical indication); or iterative reconstruction.
--- NOTE | 2022-07-23 18:00 | DI.CT_ITS ---
Exam(s) CT THORACIC LUMBAR SPINE WO EXAM: CT THORACIC LUMBAR SPINE WO CLINICAL HISTORY: Fall, Lumbar back pain. TECHNIQUE: Imaging Protocol: Axial computed tomography images with coronal and sagittal reformatted images were created and reviewed. CONTRAST MATERIAL: None COMPARISON: CT LUMBAR SPINE WITHOUT CONTRAST from 07/01/2017 FINDINGS: THORACIC SPINAL COLUMN: No evidence of compression fracture or listhesis. No facet malalignment. Chronic degenerative disc disease incidentally noted in the mid-lower cervical spine. Also degenerative anterolisthesis C4 upo n C5, approximately 4 mm. Please note the entire cervical spine is not included in the field of view of this thoracolumbar CT study. Are inferior endplate Schmorl's nodes in lower thoracic vertebral bodies but no compression fractures evident. No significant osseous lesions. LUMBOSACRAL SPINAL COLUMN: There is no evidence of fracture or listhesis. There multilevel disc space narrowing and multilevel vacuum phenomenon within the disc spaces involving all levels. Also Schmorl's node invagination in t he inferior endplate of L2. Multilevel facet arthropathy but no facet malalignment evident. No evid ence of sacral fracture. No significant osseous lesions. IMPRESSION: 1. No evidence of acute fracture in the thoracic and lumbar spinal columns. 2. No facet malalignment. Other findings as above. RADIATION DOSE DELIVERED: 2,199.86mGy.cm Total DLP DATA REPOSITORY: All CT scans at this facility are submitted to the National Radiology Data Registry (NRDR) Dose Index Registry (DIR) with the [employer] (ACR). RADIATION OPTIMIZATION: All CT scans at this facility use at least one of these dose optimization te chniques: automated exposure control; mA and/or kV adjustment per patient size (includes targeted exa ms where dose is matched to clinical indication); or iterative reconstruction.
--- NOTE | 2022-07-23 18:04 | W.ED.GENAD ---
Discharge Plan Disposition Patient Disposition: Home Discharge Details Clinical Impression: Frequent falls, Degenerative joint disease (DJD) of lumbar spine Primary Care Provider: [facility] ED Provider: Daphne Maya Home Meds and New Rx's Prescriptions: Continued risperidone 1 mg tablet 1 mg PO TID PRN Patient Comments: As noted on [place] medication list 11-01-17. TR duloxetine 60 mg capsule,delayed release(DR/EC) 60 mg PO BID P and S (salicylic acid) 2 % shampoo 1 applic TP .COMPLEX Patient Comments: 1 applic TP Three times per week as directed to scalp, Rx Instructions: 1 applic TP Three times per week as directed to scalp, naproxen 500 mg tablet 500 mg PO BID PRN propranolol 10 mg tablet 10 mg PO BID Qty: 180 3RF aspirin 81 MG tablet,chewable 81 mg PO DAILY Qty: 90 3RF ascorbic acid (vitamin C) [[place] C] 500 MG tablet,chewable 500 mg PO DAILY cyanocobalamin (vitamin B-12) 2,500 MCG tablet 500 mcg PO DAILY cholecalciferol (vitamin D3) 5,000 UNIT capsule 1 tab PO DAILY Patient Comments: pt unsure dose gabapentin 800 mg tablet 800 mg PO TID Qty: 270 3RF simvastatin 40 MG tablet 40 mg PO HS levothyroxine 75 MCG tablet 75 mcg PO DAILY omeprazole 20 MG capsule,delayed release(DR/EC) 20 mg PO DAILY trazodone 50 MG tablet 100 mg PO HS PRN (Reason: Anxiety) Patient Comments: 06/07/17 Pt. states he takes 100 mg hs. 03-07-17 PT. STATES HE TAKES ONE TAB AM AND TWO TABS HS. tamsulosin 0.4 MG capsule 0.4 mg PO DAILY AM finasteride 5 MG tablet 5 mg PO DAILY AM cyclobenzaprine 10 mg tablet 10 mg PO BID PRN lidocaine-menthol [LidAll] 1 EACH adhesive patch,medicated PRN Discharge Instructions Instructions: Low Back Strain (ED), Degenerative Disc Disease (ED) Additional Instructions: CT shows chronic changes. There is degenerative disc changes all throughout your thoracic and lumbar spine. No acute fracture or broken bones. Please use lidocaine patches which you may also get [id number] as directed once a day. Take the oxycodone twice daily as needed for moderate to severe pain. No driving or operating heavy machinery with this medication. Take with food. Follow up with primary care provider in 3-5 days. Return to ED sooner if any worsening loss of bowel or bladder control, numbness in your groin or concerns. Increase oral fluids. Referrals: Luz Harmon MD [ [facility] STAFF PHYSICIAN] - 1 week [facility] [Primary Care Provider] - 3 days Medical Decision Making 71-year-old male with a past medical history of neuropathy high cholesterol, anxiety depression tremor, GERD hyperlipidemia presents to the ER with chief complaint of frequent falls over the last few days. He reports 3 days ago he fell after losing his balance and landed on his back he reports hitting his head. Then he fell again landing on his bed. He is complaining of headache and low back pain and pain into his groin and his bilateral lower extremities. Denies any numbness or tingling no saddle anesthesia no loss of bowel or bladder control. He has been taking naproxen and cyclobenzaprine for his pain with little to no relief. CT head T and L-spine ordered. [address] results are noted below, no acute abnormality, Chronic degenerative changes and chronic ischemic changes on head CT. Will give Lidocaine patch and 4 Oxy[address] to go. Discussed CT results with patient and family verbalized understanding. Patient has a follow-up appointment with neurology next week I encouraged him to keep this appointment. Discussed tricked return instructions. This text was generated using [employer] dictation system, please disregard any oddities of phrase or misspellings. Medical Records Medical records reviewed: Yes I reviewed the patient's medical records. Imaging Data Radiologic Study: Imaging: CT Scan Radiologist's impression: CT LUMBAR SPINE WITHOUT CONTRAST 07/01/2017 6:55 PM FINDINGS: Bones/joints: Mild levoscoliosis of the thoracic spine. No acute fracture. Normal alignment in the thoracic spine. 3-4 mm mild anterolisthesis of C4 on C5. N multilevel disc degenerative changes, most prominent from T7-T8 through T11-T12 with moderate loss of disc height. Scattered white marginal spurring. No significant disc bulge or herniation. No severe spinal canal stenosis. No significant neural foraminal narrowing. Soft tissues: Unremarkable. IMPRESSION: No acute fracture or subluxation. Imaging protocol: Computed tomography of the lumbar spine without contrast. COMPARISON: CT LUMBAR SPINE WITHOUT CONTRAST 07/01/2017 6:55 PM FINDINGS: Bones/joints: No acute fracture. Normal alignment. Multilevel disc degenerative changes with moderate loss of disc height at L2-L3, L4-L5 and L5-S1. Mild endplate sclerosis at L4-L5, likely degenerative. Small Schmorl's node at the superior endplate of L3. No severe spinal canal stenosis. No significant neural foraminal narrowing. Lungs: There is bibasilar densities. Urinary bladder: The prostate is enlarged mildly protruding into the bladder lumen. Soft tissues: Unremarkable. IMPRESSION: No acute findings. Thank you for allowing us to participate in the care of your patient. Dictated and Authenticated by: Alfie Pritchard DO Radiologic Study #2: Imaging: CT Scan Radiologist's impression: CT Head WO IMPRESSION: Mild atrophy with chronic encephalomalacia again seen along the posteromedial right occipital lobe consistent with a chronic ischemic insult. There is no evidence of acute transcortical infarction, recent hemorrhage or hydrocephalus and no other intracranial lesions are detected. . Dictated and Authenticated by: Martir Jackson MD [facility] General Mode of arrival: wheelchair. Date/Time Provider Initiated Documentation: 07/23/22 17:54. Limitations to Documentation: no limitations. Information obtained by: patient, family, RN notes reviewed and old records reviewed. HPI Narrative: 71-year-old male with a past medical history of neuropathy high cholesterol, anxiety depression tremor, GERD hyperlipidemia presents to the ER with chief complaint of frequent falls over the last few days. He reports 3 days ago he fell after losing his balance and landed on his back he reports hitting his head. Then he fell again landing on his bed. He is complaining of headache and low back pain and pain into his groin and his bilateral lower extremities. Denies any numbness or tingling no saddle anesthesia no loss of bowel or bladder control. He has been taking naproxen and cyclobenzaprine for his pain with little to no relief. Related Data Home Medications Medication Instructions Recorded Confirmed levothyroxine 75 mcg tablet 75 mcg PO DAILY 04/29/15 07/23/22 omeprazole 20 mg capsule,delayed 20 mg PO DAILY 04/29/15 07/23/22 release simvastatin 40 mg tablet 40 mg PO HS 04/29/15 07/23/22 finasteride 5 mg tablet 5 mg PO DAILY AM 06/28/15 07/23/22 tamsulosin 0.4 mg capsule 0.4 mg PO DAILY AM 06/28/15 07/23/22 trazodone 50 mg tablet 100 mg PO HS PRN Anxiety 06/28/15 07/23/22 aspirin 81 mg chewable tablet 81 mg PO DAILY #90 tab-caps 03/22/17 07/23/22 ascorbic acid (vitamin C) 500 mg 500 mg PO DAILY 05/07/17 07/23/22 chewable tablet ([place] C) cyanocobalamin (vitamin B-12) 500 mcg PO DAILY 05/07/17 07/23/22 2,500 mcg tablet lidocaine 4 %-menthol 1 % topical PRN 07/01/17 05/24/22 patch (LidAll Patches) cholecalciferol (vitamin D3) 125 1 tab PO DAILY 09/06/17 07/23/22 mcg (5,000 unit) capsule risperidone 1 mg tablet 1 mg PO TID PRN 12/06/17 07/23/22 duloxetine 60 mg capsule,delayed 60 mg PO BID 12/07/17 07/23/22 release salicylic acid 2 % shampoo (P and 1 applic topical .COMPLEX 12/07/17 07/23/22 S (salicylic acid)) cyclobenzaprine 10 mg tablet 10 mg PO BID PRN 12/29/19 07/23/22 naproxen 500 mg tablet 500 mg PO BID PRN 12/29/19 07/23/22 gabapentin 800 mg tablet 800 mg PO TID #270 tab-caps 01/09/22 07/23/22 propranolol 10 mg tablet 10 mg PO BID #180 tabs 05/24/22 07/23/22 Previous Rx's Medication Instructions Recorded aspirin 81 mg chewable tablet 81 mg PO DAILY #90 tab-caps 03/22/17 gabapentin 800 mg tablet 800 mg PO TID #270 tab-caps 01/09/22 propranolol 10 mg tablet 10 mg PO BID #180 tabs 05/24/22 Allergies Allergy/AdvReac Type Severity Reaction Status Date / Time Milk Containing Products AdvReac Intermediate Nausea Verified 07/23/22 17:59 (Dairy) [Milk Containing Products] General Stated Complaint: Nk/Back Pain JELANI: 4 Review of Systems All systems reviewed & are unremarkable except as noted in HPI and below Constitutional Constitutional: Reports headache(s) ENT Ears, Nose, Mouth, and Throat: Reports headache(s) Musculoskeletal Musculoskeletal: Reports as per HPI and Reports back pain Neurologic Neurologic: Reports headache(s) PFSH All Active Problems (Updated 07/23/22 @ 19:20 by Daphne Maya NP) Frequent falls (Acute) Degenerative joint disease (DJD) of lumbar spine (Acute) Spells of trembling (Acute) Right shoulder pain (Acute) Tremor (Acute 05/07/17) Seizures (Acute 05/07/17) Medical History (Updated 07/23/22 @ 19:20 by Daphne Maya NP) Abnormal liver enzymes Adult hypothyroidism Anxiety Cataract Cervicalgia Depression Edema Essential tremor Foot pain GERD (gastroesophageal reflux disease) Hyperlipidemia Keloid scar Lazy eye of right side Low back pain Lung nodules Left lower lung nodules of unclear etiology. ?Previous TB? Peripheral neuropathy idiopathic; small fiber Primary malignant neoplasm of prostate diagnosed in 2014. He has not received any type of treatment for this as per his wishes. Seizure disorder Stroke Silent Right occipital stroke, end of year 2015? Thrombocytopenia dx Nov 2016 Surgical History History of cataract surgery bilateral History of prostate biopsy x2 in 2014; History of surgical removal of pilonidal cyst x10 S/P eye surgery R, lazy eye x2 Family History Mother Diabetes Alzheimer disease Social History Smoking/Tobacco Use Status: Former Tobacco Use Smoking risk assessment performed?: Yes Alcohol Intake: current Alcohol Intake frequency: a few times a month Drug use: Never Substance use type: does not use Household members: spouse Number of Children: 1 What is your relationship status?: Panel score (0-1 are the most socially isolated patients): 1 What type of physical activity do you participate in: none Do you feel safe at home: Yes Do you feel safe in your relationship?: Yes Additional Social history: He is to Aarti (x30+years - this is his 2nd marriage. They are 5th/6th cousins). They have 1 child. 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 He moved from [place] in late 2014. Exam Narrative Exam Narrative: General: Well Developed, Awake and Alert, conversant. Skin: Warm and Dry HEENT: Head: No palpable deformities, Normocephalic Eyes: Pupils PERRLA, EOM's intact. No periorbital eccymosis or step off Ears: Canal patent. Tympanic membranes are clear . No christiansen's sign, no hemptympanum. Nose/Face: Atraumatic. Facial bones nontender to palpation and stable with manipulation. Mouth/Throat: No intraoral trauma. Teeth and mandible are intact. Neck: No midline tenderness, no step off, no deformity to palpation of C-spine. Trachea midline. Chest: No surface trauma. Nontender without crepitus or deformity. Lungs clear to ausculatation bilaterally. Heart: RRR, no rubs, murmurs or gallop. Abdomen: No abrasions, ecchymosis, or surface trauma. Nondistended. Nontender to palpation no guarding, rebound, or rigidity. Pelvis: Nontender to palpation and stable to compression. Femoral pulses strong and equal Extremities: no surface trauma. Sensation intact. Peripheral pulses intact and equal. Neuro: ANO x4, GCS 15, cranial nerves II through XII intact. Motor and sensory exam nonfocal. Reflexes are symmetric. Course Vital Signs Vital signs: Vital Signs Temperature 36.8 C 07/23/22 17:54 Pulse 78 07/23/22 17:54 Respiratory Rate 18 07/23/22 17:54 Blood Pressure 151/72 H 07/23/22 17:54 Pulse Oximetry 94 07/23/22 17:54 Temperature 36.8 C 07/23/22 17:54 Temperature Source Temporal Artery Scan 07/23/22 17:54 Pulse 78 07/23/22 17:54 Respiratory Rate 18 07/23/22 17:54 Respiratory Effort Normal, Non-Labored 07/23/22 17:59 Blood Pressure 151/72 H 07/23/22 17:54 Blood Pressure Position Sitting 07/23/22 17:54 Pulse Oximetry 94 07/23/22 17:54 Oxygen Delivery Method Room Air 07/23/22 17:54 Oxygen Flow Rate 0 07/23/22 17:54 PAWSS Have you Been Recently Intoxicated or Drunk Within the Last 30 days?: No Have you Ever Experienced Previous Episodes of Alcohol Withdrawal?: No Have you ever Experienced Withdrawal Seizures?: No Have you ever Experienced Delirium Tremens(DT)s?: No Have you ever Experienced Blackouts?: No Have you ever Combined Alcohol with other Downers within the last 90 days?: No Have you ever Combined Alcohol with any other Substance of Abuse during the last 90 days?: No Positive Blood Alcohol level on Presentation? [PCS.BAL]: No Evidence of Increased Autonomic Activity (i.e. HR>120, tremor, sweating, agitation, nausea)?: No Result: 0
[2022-07-23] MEDS: oxyCODONE 5 MG TAB PO (18:11)
--- NOTE | 2022-07-23 18:51 | DI.VRAD_ITS ---
PROCEDURE INFORMATION: Exam: CT Head Without Contrast Exam date and time: 07/23/2022 6:26 PM Age: 71 years old Clinical indication: Other: Fall, headache TECHNIQUE: Imaging protocol: Computed tomography of the head without contrast. COMPARISON: MRI - BRAIN WO CONTRAST 04/02/2017 4:56 PM FINDINGS: Brain: Slight prominence of cerebral sulci reflects mild cerebral atrophy and an area of cystic encephalomalacia and volume loss seen along the posteromedial right occipital lobe is again consistent with a remote ischemic insult. Brainstem and cerebellum are unremarkable and there is no evidence of acute transcortical infarction or recent intracranial hemorrhage. Cerebral ventricles: Ventricular and cisternal spaces are normal in size and configuration and there is no midline shift or hydrocephalus. Paranasal sinuses: Grossly clear throughout. Mastoid air cells: Grossly clear bilaterally. Probable cerumen seen in the external auditory canals bilaterally. Bones/joints: Bony calvarium and skull base are intact and no acute fractures are detected. Soft tissues: Unremarkable. IMPRESSION: Mild atrophy with chronic encephalomalacia again seen along the posteromedial right occipital lobe consistent with a chronic ischemic insult. There is no evidence of acute transcortical infarction, recent hemorrhage or hydrocephalus and no other intracranial lesions are detected. Dictated and Authenticated by: Martir Jackson MD. Ordering:GEORGIANA Serna MD
--- NOTE | 2022-07-23 19:12 | DI.VRAD_ITS ---
PROCEDURE INFORMATION: Exam: CT Thoracic Spine Without Contrast Exam date and time: 07/23/2022 6:28 PM Age: 71 years old Clinical indication: Other: Fall, back pain; Other: Back pain, fall TECHNIQUE: Imaging protocol: Computed tomography of the thoracic spine without contrast. COMPARISON: CT LUMBAR SPINE WITHOUT CONTRAST 07/01/2017 6:55 PM FINDINGS: Bones/joints: Mild levoscoliosis of the thoracic spine. No acute fracture. Normal alignment in the thoracic spine. 3-4 mm mild anterolisthesis of C4 on C5. N multilevel disc degenerative changes, most prominent from T7-T8 through T11-T12 with moderate loss of disc height. Scattered white marginal spurring. No significant disc bulge or herniation. No severe spinal canal stenosis. No significant neural foraminal narrowing. Soft tissues: Unremarkable. IMPRESSION: No acute fracture or subluxation. PROCEDURE INFORMATION: Exam: CT Lumbar Spine Without Contrast Exam date and time: 07/23/2022 6:28 PM Age: 71 years old Clinical indication: Other: Fall, back pain; Other: Back pain, fall TECHNIQUE: Imaging protocol: Computed tomography of the lumbar spine without contrast. COMPARISON: CT LUMBAR SPINE WITHOUT CONTRAST 07/01/2017 6:55 PM FINDINGS: Bones/joints: No acute fracture. Normal alignment. Multilevel disc degenerative changes with moderate loss of disc height at L2-L3, L4-L5 and L5-S1. Mild endplate sclerosis at L4-L5, likely degenerative. Small Schmorl's node at the superior endplate of L3. No severe spinal canal stenosis. No significant neural foraminal narrowing. Lungs: There is bibasilar densities. Urinary bladder: The prostate is enlarged mildly protruding into the bladder lumen. Soft tissues: Unremarkable. IMPRESSION: No acute findings. Dictated and Authenticated by: Alfie Pritchard MD. Ordering:GEORGIANA Serna MD
[2022-07-23] MEDS: Lidocaine 5% Patch 1 PATCH TP (19:33)
[2022-07-23 19:43] VITALS: BP 143/67; PULSE 65; RESP 20; O2SAT 97
== END 2022-07-23 19:44 | disposition home or self-care (01) ==
PROVIDERS: Emergency Provider Registered Nurse Emergency
DX: M47.816 Spondylosis without myelopathy or radiculopathy, lumbar region (principal); Z91.81 History of falling
CPT/HCPCS: 99284; 70450; 72128; 72131; 99283

== ENCOUNTER → 2022-07-26 09:18 | Outpatient (BNVA) | payer MEDICARE, OTHER, SELFPAY | PROVIDERS: Visit Provider Psychiatry & Neurology Neurology | DX: R26.89 Other abnormalities of gait and mobility (principal); G62.9 Polyneuropathy, unspecified; R68.89 Other general symptoms and signs; G25.0 Essential tremor; R56.9 Unspecified convulsions | CPT/HCPCS: 99214 ==

== ENCOUNTER 2022-10-07 08:59 | Emergency (ER) | payer MEDICARE, OTHER, SELFPAY ==
[2022-10-07 09:04] VITALS: BP 132/69; PULSE 79; RESP 16; O2SAT 90
[2022-10-07 09:05] VITALS: BP 132/69; PULSE 79; O2SAT 91
--- NOTE | 2022-10-07 09:25 | W.ED.GENAD ---
Discharge Plan Disposition Patient Disposition: Home Discharge Details Clinical Impression: Acute exacerbation of chronic low back pain Primary Care Provider: Luz Harmon ED Provider: Dominick Zuniga Home Meds and New Rx's Prescriptions: Continued risperidone 1 mg tablet 1 mg PO TID PRN Patient Comments: As noted on [place] medication list 11-01-17. TR duloxetine 60 mg capsule,delayed release(DR/EC) 60 mg PO BID P and S (salicylic acid) 2 % shampoo 1 applic TP .COMPLEX Patient Comments: 1 applic TP Three times per week as directed to scalp, Rx Instructions: 1 applic TP Three times per week as directed to scalp, naproxen 500 mg tablet 500 mg PO BID PRN propranolol 10 mg tablet 10 mg PO BID Qty: 180 3RF vitamin E (dl, acetate) 45 mg (100 unit) capsule 45 mg PO DAILY aspirin 81 MG tablet,chewable 81 mg PO DAILY Qty: 90 3RF ascorbic acid (vitamin C) [Chicken C] 500 MG tablet,chewable 500 mg PO DAILY cyanocobalamin (vitamin B-12) 2,500 MCG tablet 500 mcg PO DAILY cholecalciferol (vitamin D3) 5,000 UNIT capsule 1 tab PO DAILY Patient Comments: pt unsure dose gabapentin 800 mg tablet 800 mg PO TID Qty: 270 3RF simvastatin 40 MG tablet 40 mg PO HS levothyroxine 75 MCG tablet 75 mcg PO DAILY omeprazole 20 MG capsule,delayed release(DR/EC) 20 mg PO DAILY trazodone 50 MG tablet 100 mg PO HS PRN (Reason: Anxiety) Patient Comments: 06/07/17 Pt. states he takes 100 mg hs. 03-07-17 PT. STATES HE TAKES ONE TAB AM AND TWO TABS HS. tamsulosin 0.4 MG capsule 0.4 mg PO DAILY AM finasteride 5 MG tablet 5 mg PO DAILY AM cyclobenzaprine 10 mg tablet 10 mg PO BID PRN lidocaine-menthol [LidAll] 1 EACH adhesive patch,medicated 1 patch topical DAILY guaifenesin 100 mg Tablet 100 mg PO BID Discharge Instructions Instructions: Back Pain (ED) Additional Instructions: As discussed you may continue to perform light duty activities as tolerated. Please restrict any bending lifting or twisting. If you have any new or significant worsening of symptoms please return the emergency department for reassessment otherwise follow-up with your primary care provider next week. You have been given a limited supply of narcotic. Please use for severe pain only and to be cautious with any operating of automobiles, machinery, or dangerous objects as this medication may alter your reaction time. You may continue to use your normally prescribed medication Referrals: [facility] [Outside] Medical Decision Making Patient presenting to the emergency department for chief complaint of back pain. Patient reports on of this week he started having worsening of his chronic back pain. He states this is exactly similar to previous episodes, denies injury or trauma, denies bowel or bladder dysfunction, states ongoing severe peripheral neuropathy with no change in symptoms, denies fever chills. Physical exam shows diffuse nonfocal lumbar tenderness with paraspinal tenderness along with some right sciatic notch discomfort. There is significant decreased reflexes bilateral but I suspect that this is normal for patient given his history of peripheral neuropathy, spinal stenosis and degenerative disc disease. Based upon physical exam and review of systems I feel that patient is LOW risk for ABDOMINAL AORTIC ANEURYSM, CAUDA EQUINA SYNDROME, EPIDURAL MASS LESION, SEVERE SPINAL STENOSIS, OR HERNIATED DISK CAUSING SEVERE STENOSIS, thus I consider the discharge disposition reasonable. Discussed with patient standard care he received when he gets these flareups. Patient states that he is already tried his normal naproxen and Flexeril which has not relieved symptoms. He states that typically in the circumstances oxycodone is what helps in the past. He does report that he is trying to get ahead of his back pain given that he has had previous episodes of severe uncontrollable pain with requiring admission. We will plan on giving patient oxycodone and lidocaine patch here and then performing ambulatory trial after treatment. At this time I feel that no advanced imaging is needed given no new or significant worsening of patient's chronic condition. Reassessed patient after administration of lidocaine patch and oxycodone. Patient had moderate improvement. Ambulatory trial was performed and patient was able to ambulate at baseline. we have discussed the diagnosis and risks, and we agree with discharging home to follow-up with their primary doctor. We also discussed returning to the Emergency Department immediately if new or worsening symptoms occur. We have discussed the symptoms which are most concerning (e.g., saddle anesthesia, urinary or bowel incontinence or retention, changing or worsening pain) that necessitate immediate return. After discussion of diagnosis and plan of care patient has no further needs, questions, or concerns and states clear understanding to return to the emergency department for any worsening symptoms. This documentation was generated using [employer] dictation system, please disregard any oddities of phrase or misspellings. HPI General Mode of arrival: wheelchair. Date/Time Provider Initiated Documentation: 10/07/22 09:00. Limitations to Documentation: no limitations. Information obtained by: patient, family, RN notes reviewed and old records reviewed. History of Present Illness 71 year old M presents to the emergency department with the chief complaint of Back pain, described as moderate and similar to prior episodes, Quality is described as sharp, and is localized to the back. Patient started experiencing this day(s) (3) and it has been constant. Rest improves symptom(s), Movement worsens symptoms . Patient notes no other symptoms.. Patient did receive the following treatments prior to arrival, NSAID Related Data Home Medications Medication Instructions Recorded Confirmed levothyroxine 75 mcg tablet 75 mcg PO DAILY 04/29/15 10/07/22 omeprazole 20 mg capsule,delayed 20 mg PO DAILY 04/29/15 10/07/22 release simvastatin 40 mg tablet 40 mg PO HS 04/29/15 10/07/22 finasteride 5 mg tablet 5 mg PO DAILY AM 06/28/15 10/07/22 tamsulosin 0.4 mg capsule 0.4 mg PO DAILY AM 06/28/15 10/07/22 trazodone 50 mg tablet 100 mg PO HS PRN Anxiety 06/28/15 10/07/22 aspirin 81 mg chewable tablet 81 mg PO DAILY #90 tab-caps 03/22/17 10/07/22 ascorbic acid (vitamin C) 500 mg 500 mg PO DAILY 05/07/17 10/07/22 chewable tablet (Chicken C) cyanocobalamin (vitamin B-12) 500 mcg PO DAILY 05/07/17 10/07/22 2,500 mcg tablet lidocaine 4 %-menthol 1 % topical 1 patch topical DAILY 07/01/17 10/07/22 patch (LidAll Patches) cholecalciferol (vitamin D3) 125 1 tab PO DAILY 09/06/17 10/07/22 mcg (5,000 unit) capsule risperidone 1 mg tablet 1 mg PO TID PRN 12/06/17 10/07/22 duloxetine 60 mg capsule,delayed 60 mg PO BID 12/07/17 10/07/22 release salicylic acid 2 % shampoo (P and 1 applic topical .COMPLEX 12/07/17 10/07/22 S (salicylic acid)) cyclobenzaprine 10 mg tablet 10 mg PO BID PRN 12/29/19 10/07/22 naproxen 500 mg tablet 500 mg PO BID PRN 12/29/19 10/07/22 gabapentin 800 mg tablet 800 mg PO TID #270 tab-caps 01/09/22 10/07/22 propranolol 10 mg tablet 10 mg PO BID #180 tabs 05/24/22 10/07/22 vitamin E (dl, acetate) 45 mg (100 45 mg PO DAILY 07/26/22 10/07/22 unit) capsule guaifenesin 100 mg tablet 100 mg PO BID 10/07/22 10/07/22 Previous Rx's Medication Instructions Recorded aspirin 81 mg chewable tablet 81 mg PO DAILY #90 tab-caps 03/22/17 gabapentin 800 mg tablet 800 mg PO TID #270 tab-caps 01/09/22 propranolol 10 mg tablet 10 mg PO BID #180 tabs 05/24/22 Allergies Allergy/AdvReac Type Severity Reaction Status Date / Time Milk Containing Products AdvReac Intermediate Nausea Verified 10/07/22 09:09 (Dairy) [Milk Containing Products] General Stated Complaint: Nk/Back Pain JELANI: 3 Review of Systems Constitutional Constitutional: Denies chills, Denies fever(s) and Denies weakness Cardiovascular Cardiovascular: Denies chest pain, Denies syncope and Denies dyspnea on exertion Respiratory Respiratory: Denies cough and Denies dyspnea on exertion Gastrointestinal Gastrointestinal: Denies abdominal pain, Denies change in bowel habits, Denies diarrhea, Denies nausea and Denies vomiting Genitourinary Genitourinary: Denies difficulty urinating and Denies urinary incontinence Musculoskeletal Musculoskeletal: Reports as per HPI and Reports back pain Neurologic Neurologic: Denies syncope, Denies lack of coordination and Denies weakness PFSH All Active Problems (Updated 10/07/22 @ 10:36 by Dominick Zuniga NP) Acute exacerbation of chronic low back pain (Acute) Spells of trembling (Acute) Right shoulder pain (Acute) Tremor (Acute 05/07/17) Seizures (Acute 05/07/17) Medical History (Updated 10/07/22 @ 10:36 by Dominick Zuniga NP) Abnormal liver enzymes Adult hypothyroidism Anxiety Cataract Cervicalgia Depression Edema Essential tremor Foot pain GERD (gastroesophageal reflux disease) Hyperlipidemia Keloid scar Lazy eye of right side Low back pain Lung nodules Left lower lung nodules of unclear etiology. ?Previous TB? Peripheral neuropathy idiopathic; small fiber Primary malignant neoplasm of prostate diagnosed in 2014. He has not received any type of treatment for this as per his wishes. Seizure disorder Stroke Silent Right occipital stroke, end of year 2016? Thrombocytopenia dx Nov 2016 Surgical History History of cataract surgery bilateral History of prostate biopsy x2 in 2014; History of surgical removal of pilonidal cyst x10 S/P eye surgery R, lazy eye x2 Family History Mother Diabetes Alzheimer disease Social History Smoking/Tobacco Use Status: Former Tobacco Use Smoking risk assessment performed?: Yes Alcohol Intake: current Alcohol Intake frequency: a few times a month Drug use: Never Substance use type: does not use Household members: spouse Housing: other Number of Children: 1 What is your relationship status?: Panel score (0-1 are the most socially isolated patients): 1 What type of physical activity do you participate in: none Do you feel safe at home: Yes Do you feel safe in your relationship?: Yes Additional Social history: He is to Aarti (x30+years - this is his 2nd marriage. They are 5th/6th cousins). They have 1 child. 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 He moved from [place] in late 2014. Exam Const General: cooperative and no acute distress Orientation: alert, awake and oriented x3 Neck Neck: normal visual inspection, full ROM and no meningeal signs Resp Effort & Inspection: normal respiratory effort Auscultation: clear to auscultation bilaterally Cardio Rate: regular rate Rhythm: regular rhythm Heart Sounds: S1 normal and S2 normal GI Palpation: no hepatosplenomegaly, no aortic enlargement, no masses and no pulsatile masses Back/Spine/Pelvis Thoracic/Lumbar Spine: pain with thoraco-lumbar ROM and thoraco-lumbar ROM limited Pelvis: no pain with anterior-posterior compression, no pain with lateral compression, buttock tenderness on the right and sciatic notch tenderness on the right Neuro General: patient alert, patient awake and patient oriented x3 DTR's: Rt Patellar: 1+ (Very reduced) and Lt Patellar: 1+ (Very reduced) Course Vital Signs Vital signs: Vital Signs Pulse 79 10/07/22 09:04 Respiratory Rate 16 10/07/22 09:04 Blood Pressure 132/69 10/07/22 09:04 Pulse Oximetry 90 L 10/07/22 09:04 Pulse 79 10/07/22 09:04 Respiratory Rate 16 10/07/22 09:04 Respiratory Effort Normal, Non-Labored 10/07/22 09:06 Blood Pressure 132/69 10/07/22 09:04 Blood Pressure Position Supine 10/07/22 09:04 Pulse Oximetry 90 L 10/07/22 09:04 Oxygen Delivery Method Room Air 10/07/22 09:04 Oxygen Flow Rate 0 10/07/22 09:04 PAWSS Have you Been Recently Intoxicated or Drunk Within the Last 30 days?: No Have you Ever Experienced Previous Episodes of Alcohol Withdrawal?: No Have you ever Experienced Withdrawal Seizures?: No Have you ever Experienced Delirium Tremens(DT)s?: No Have you ever undergone Alcohol Rehabilitation Treatment (i.e, inpt ot outpatient treatment programs)?: No Have you ever Experienced Blackouts?: No Have you ever Combined Alcohol with other Downers within the last 90 days?: No Result: 0
[2022-10-07] MEDS: oxyCODONE 5 MG TAB PO (09:31)
[2022-10-07] MEDS: Lidocaine 5% Patch 1 PATCH TP (09:32)
[2022-10-07 10:32] VITALS: BP 132/69; PULSE 79; RESP 18; O2SAT 93
--- NOTE | 2022-10-07 10:35 | NUR.NOTE ---
Referral per Palomo Zuniga to PCP-EFREN Barrera next week for back pain. Put the referral in the career development coordinator's box for follow up assistance.Nursing Note:
--- NOTE | 2022-10-12 16:00 | NUR.NOTE ---
Accessed chart to get pt phone number.Nursing Note:
== END 2022-10-07 10:41 | disposition home or self-care (01) ==
PROVIDERS: Emergency Provider Nurse Practitioner Family; PCP Psychiatry & Neurology Neurology
DX: M54.50 Low back pain, unspecified (principal)
CPT/HCPCS: 99283

== ENCOUNTER → 2022-10-19 09:22 | Outpatient (BNVA) | payer MEDICARE, OTHER, SELFPAY | PROVIDERS: PCP Psychiatry & Neurology Neurology; Visit Provider Psychiatry & Neurology Neurology | DX: R56.9 Unspecified convulsions (principal); G25.0 Essential tremor; R41.3 Other amnesia; R29.6 Repeated falls; G62.9 Polyneuropathy, unspecified | CPT/HCPCS: 99214 ==

== ENCOUNTER → 2022-11-14 00:07 | Outpatient (CLI) | payer OTHER, SELFPAY ==
--- NOTE | 2022-11-14 | DI.MRI_ITS ---
Exam(s) MR LUMBAR SPINE WO EXAM: MR LUMBAR SPINE WO CLINICAL HISTORY: AUTH [id number] LOW BACK PAIN M54.50. TECHNIQUE: Multiplanar multisequence MRI of the Lumbar spine was performed. CR XR LUMBAR SPINE COMPLETE from 11/14/2022 FINDINGS: Bones: The last intervertebral disc space is designated the L5/S1 level for the numbering purpose of this ex amination. The vertebral body heights are well maintained. Alignment: Unremarkable. The marrow signal characteristics are unremarkable. Cord: The conus tip ends at the T12 level. It is of normal size and signal intensity. T12-L1: No focal disc herniation is present. No central spinal canal stenosis.No neural foraminal st enosis. L1-2: No focal disc herniation is present. No central spinal canal stenosis.No neural foraminal sten osis. L2-3:Moderate loss of disc height. Broad-based disc osteophytes. Schmorl's nodes. Degenerative sig nal changes in the endplates. Facet degenerative changes and ligamentous hypertrophy. No focal disc herniation is present. No central spinal canal stenosis.Mild bilateral neural foraminal stenosis. L3-4: Mild loss of disc height. Broad-based disc osteophytes. Facet degenerative changes and ligame ntous hypertrophy.No focal disc herniation is present. Moderate central spinal canal stenosis.Moder ate bilateral neural foraminal stenosis. L4-5:Mild loss of disc height. Mild broad-based disc bulging, eccentric toward the right. Facet deg enerative changes. No focal disc herniation is present. No central spinal canal stenosis.Moderate r ight neural foraminal stenosis. L5-S1: Moderate loss of disc height and endplate osteophytes eccentric toward the left. Mild facet d egenerative changes.No focal disc herniation is present. No central spinal canal stenosis.No neural foraminal stenosis. The visualized SI joints and sacrum are well maintained. Soft tissues: The paraspinal soft tissues are unremarkable. IMPRESSION: Degenerative disc changes and facet degenerative changes, greatest at L2-3 and L3-4. Degenerative c hanges slightly worsened compared with prior exam. DATA REPOSITORY:
--- NOTE | 2022-11-14 09:49 | DI.RAD_ITS ---
Exam(s) XR LUMBAR SPINE COMPLETE EXAM: XR LUMBAR SPINE COMPLETE CLINICAL HISTORY: AUTH# [id number] LOW BACK PAIN M54.59. TECHNIQUE: 2D digital imaging was performed. Five views. COMPARISON: No exams were available for comparison FINDINGS: BONES: No fracture or destructive lesion. Vertebral body heights are maintained. Moderate facet hype rtrophy identified from L3-4 through L5-S1.. No spondylolysis. DISKS: Disc space narrowing and endplate osteophyte formation noted from L2-3 through L5-S1. ALIGNMENT: Lumbar spinal alignment is within normal limits. No significant scoliosis or spondylolist hesis. SOFT TISSUE: Normal. IMPRESSION: Degenerative changes, greatest at L4-5 and L5-S1. DATA REPOSITORY: RADIATION DOSE DELIVERED:
== END ==
PROVIDERS: PCP Psychiatry & Neurology Neurology; Visit Provider Internal Medicine
DX: M51.36 Other intervertebral disc degeneration, lumbar region (principal)
CPT/HCPCS: 72110; 72148

== ENCOUNTER → 2023-01-18 09:43 | Outpatient (BNVA) | payer MEDICARE, OTHER, SELFPAY | PROVIDERS: PCP Internal Medicine; Referring Provider Internal Medicine; Visit Provider Psychiatry & Neurology Neurology | DX: R25.1 Tremor, unspecified (principal); R56.9 Unspecified convulsions; R29.6 Repeated falls; G62.9 Polyneuropathy, unspecified | CPT/HCPCS: 99214 ==

== ENCOUNTER → 2023-05-21 11:13 | Outpatient (BNVA) | payer MEDICARE, OTHER, SELFPAY | PROVIDERS: PCP Internal Medicine; Visit Provider Psychiatry & Neurology Neurology | DX: R26.9 Unspecified abnormalities of gait and mobility (principal); G95.9 Disease of spinal cord, unspecified; G62.9 Polyneuropathy, unspecified; E05.90 Thyrotoxicosis, unspecified without thyrotoxic crisis or storm; R94.6 Abnormal results of thyroid function studies; R73.9 Hyperglycemia, unspecified; R29.6 Repeated falls; G25.0 Essential tremor; R56.9 Unspecified convulsions | CPT/HCPCS: 99214 ==

== ENCOUNTER → 2023-06-13 03:26 | Outpatient (CLI) | payer MEDICARE, OTHER, SELFPAY ==
--- NOTE | 2023-06-13 11:45 | DI.MRI_ITS ---
Exam(s) MR CERVICAL SPINE WO EXAM: MR CERVICAL SPINE WO CLINICAL HISTORY: ? myelopathy,gait abnormality,r26.9,g95.9 TECHNIQUE: Multiplanar multisequence MRI of the cervical spine was performed without intravenous con trast. COMPARISON: No exams were available for comparison FINDINGS: CERVICOMEDULLARY JUNCTION: Intact with no evidence of cerebellar tonsillar ectopia. No obvious abnor mality of the odontoid process. No evidence of Chiari 1 malformation. CERVICAL SPINAL CORD: There is no abnormal signal in the cervical spinal cord and no evidence of foca l cord atrophy nor focal cord swelling. OSSEOUS:There are no cervical fractures evident. No significant osseous lesions in the cervical vert ebrae. INDIVIDUAL LEVELS: C2-3: Normal disc height. Mild central annular bulging without a dominant disc herniation. Central canal dimensions are lower normal. There is significant facet arthropathy bilaterally. No prominent neuro foraminal stenosis C3-4: Mild decreased disc height. No disc herniation.No central canal stenosis. There are degenerat alejandro changes in the right facet joint with an element of moderate right-sided foraminal stenosis at th is level. Left side facet joints appear unremarkable and there is no foraminal stenosis on the left side at this level. C4-5: Mild decreased disc height. There is mild degenerative anterolisthesis of C 4 upon C5 with jones roximately 2 millimeters anterior slippage which results in some annular bulging but without prominen t central canal stenosis at this level.There are degenerative changes in both facet joints at this le nithin, more prominent on the right side. Is moderate right-sided foraminal stenosis. There is mild le ft-sided foraminal stenosis. C5-6: This level exhibits chronic advanced disc space narrowing and anterior osseous lipping. Police Liaison iorly there is mild annular bulging without a prominent disc herniation. There is some flattening of the anterior thecal sac but the central canal dimensions are within normal limits, with AP measureme nt of 11.2 mm left facet joint appears unremarkable. Mild degenerative changes are noted in the righ t facet joint. Mild foraminal stenosis on both sides at this level. C6-7: This level also exhibits chronic advanced disc space narrowing. Posteriorly there is broad sym metrical annular bulging without a distinct focal disc herniation and central canal dimensions are wi thin normal limits. There are mild degenerative changes in the facet joints. Mild left-sided forami nal stenosis. No obvious right-sided foraminal stenosis. C7-T1: No disc herniation nor central canal stenosis. No facet arthropathy.No foraminal stenosis. IMPRESSION: 1. Mild multilevel findings as described individually. 2. There is no significant and dominant disc herniation. No prominent central canal stenosis. 3. There is some mildly asymmetric foraminal stenosis with mild multilevel foraminal stenosis. 4. No obvious signal abnormality in the cervical spinal cord. No evidence of obvious myelitis signa l. No evidence of syringomyelia. DATA REPOSITORY:
== END ==
PROVIDERS: PCP Internal Medicine; Visit Provider Psychiatry & Neurology Neurology
DX: R26.9 Unspecified abnormalities of gait and mobility (principal); G95.9 Disease of spinal cord, unspecified
CPT/HCPCS: 72141

== ENCOUNTER 2023-06-15 06:06 | Outpatient (CLI) | payer MEDICARE, OTHER, SELFPAY ==
--- NOTE | 2023-06-19 20:47 | PDOC.EEG ---
Neurology EEG EEG: [facility] Department of Neurology LONG-TERM AMBULATORY EEG REPORT Date of Recordin06/15/23 at 13:22:16 to 06/17/23 at 13:11:08 Interpreting Physician: Dr. Luz Harmon PCP/Referring Provider: EFREN Reason for study: Mr. Childs is a 72 year-old with a history of possible epileptic seizures who notes frequent/continuous nocturnal jerking movements during sleep. Current Medications: Home Medications Medication Instructions Recorded Confirmed Type levothyroxine 75 mcg tablet 75 mcg PO DAILY 04/29/15 05/21/23 History omeprazole 20 mg capsule,delayed 20 mg PO DAILY 04/29/15 05/21/23 History release simvastatin 40 mg tablet 40 mg PO HS 04/29/15 05/21/23 History finasteride 5 mg tablet 5 mg PO DAILY AM 06/28/15 05/21/23 History tamsulosin 0.4 mg capsule 0.4 mg PO DAILY AM 06/28/15 05/21/23 History trazodone 50 mg tablet 100 mg PO HS PRN Anxiety 06/28/15 05/21/23 History aspirin 81 mg chewable tablet 81 mg PO DAILY #90 tab-caps 03/22/17 05/21/23 Rx ascorbic acid (vitamin C) 500 mg 500 mg PO DAILY 05/07/17 01/18/23 History chewable tablet (Dunbar C) cyanocobalamin (vitamin B-12) 500 mcg PO DAILY 05/07/17 05/21/23 History 2,500 mcg tablet lidocaine 4 %-menthol 1 % topical 1 patch topical DAILY 07/01/17 05/21/23 History patch (LidAll Patches) cholecalciferol (vitamin D3) 125 1 tab PO DAILY 09/06/17 05/21/23 History mcg (5,000 unit) capsule risperidone 1 mg tablet 1 mg PO TID PRN 12/06/17 05/21/23 History duloxetine 60 mg capsule,delayed 60 mg PO BID 12/07/17 05/21/23 History release salicylic acid 2 % shampoo (P and 1 applic topical .COMPLEX 12/07/17 05/21/23 History S (salicylic acid)) cyclobenzaprine 10 mg tablet 10 mg PO BID PRN 12/29/19 05/21/23 History naproxen 500 mg tablet 500 mg PO BID PRN 12/29/19 05/21/23 History vitamin E (dl, acetate) 45 mg (100 45 mg PO DAILY 07/26/22 05/21/23 History unit) capsule guaifenesin 100 mg tablet 100 mg PO BID 10/07/22 05/21/23 History gabapentin 800 mg tablet 800 mg PO TID #270 tab-caps 10/19/22 05/21/23 Rx propranolol 10 mg tablet 10 mg PO BID #180 tabs 01/18/23 05/21/23 Rx METHODS: An 18-channel digitized electroencephalogram was recorded in the ambulatory setting with video. The 10/20 international system of electrode placement was used and bipolar and referential electrode montages were recorded. In addition to EEG the patient was monitored for EKG and by video. Activation procedures of photic stimulation and hyperventilation were performed if applicable. The duration of the recording was ~48 hours. DESCRIPTION OF EEG: Waking background activity: During maximal wakefulness a 10-Hz posterior background rhythm was present which was well-modulated, symmetrical, reactive to eye opening, and of moderate voltage. Faster frequencies were present in the bilateral anterior head regions. There was a normal anterior-posterior voltage gradient. Drowsy and sleeping background activity: During drowsiness, there was attenuation of the posterior dominant background rhythm and vertex waves. Normal stage II and III sleep was present with symmetrical sleep spindles, K-complexes, and vertex waves with slowing of the background rhythm to delta/theta frequencies. REM sleep manifested by rapid lateral eye movements and faster background rhythms was recorded. Arousal was unremarkable. Interictal abnormalities: none. Ictal findings: No events recorded. Activating Procedures: Photic stimulation was performed which produced a symmetrical posterior driving response at various flash frequencies. Hyperventilation was not performed. EKG: EKG revealed normal sinus rhythm. INTERPRETATION: This long-term EEG is normal during the awake and sleep states as well as during the activation procedures. PRIOR EEG: -EEG (03/12/15 at [facility]): normal in the awake and drowsy states. 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 -Amb EEG (11/2019 x 24hr): normal. No events captured. CLINICAL CORRELATION: No focal regions of cerebral dysfunction or epileptiform activity was present. Epilepsy remains a clinical diagnosis and a normal EEG does not rule out epilepsy. Clinical correlation is advised. Luz Harmon MD Date of service: 06/15/23
== END 2023-06-19 23:59 | disposition home or self-care (01) ==
LOC: RT 06:07
PROVIDERS: PCP Internal Medicine; Visit Provider Psychiatry & Neurology Neurology
DX: R68.89 Other general symptoms and signs (principal); R25.8 Other abnormal involuntary movements
CPT/HCPCS: 95714; 95720; 95722

== ENCOUNTER → 2023-06-25 12:31 | Outpatient (BNVA) | payer MEDICARE, OTHER, SELFPAY | PROVIDERS: PCP Internal Medicine; Referring Provider Internal Medicine; Visit Provider Psychiatry & Neurology Neurology ==

== ENCOUNTER 2023-07-24 05:08 | Outpatient (CLI) | payer MEDICARE, OTHER, SELFPAY ==
[2023-07-24 13:37] LABS: HCT 41.1 % (40.0-50.0); HGB 13.3 g/dL (13.5-17.5); MCHC 32.4 % (32.0-36.0); MCV 93 fL (80-95); MPV 11.5 fL (8.0-11.0); Platelet Count 175 10^3/uL (130-400); RBC 4.43 10^6/uL (4.36-5.78); RDW 12.9 % (11.8-14.1); RDW-SD 44.3 fL; WBC 6.61 10^3/uL (4.4-10.8)
[2023-07-24 14:24] LABS: Hemoglobin A1C 5.7 % (<5.7)
[2023-07-24 14:40] LABS: ALT 21 U/L (16-63); AST 16 U/L (15-37); Albumin 3.5 g/dL (3.4-5.0); Alkaline Phosphatase 120 U/L (46-116); Anion Gap 5.8 mmol/L (3-11); BUN 26 mg/dL (7-18); Bilirubin, Total 0.4 mg/dL (0.2-1.0); CO2 34.2 mmol/L (21.0-32.0); CREATININE 1.3 mg/dL (0.70-1.30); Calcium 9.1 mg/dL (8.5-10.1); Chloride 102 mmol/L (98-107); Estimated GFR 58.01 (mL/min/1.73m2); Glucose 96 mg/dL (74-106); Potassium 4.5 mmol/L (3.5-5.1); Sodium 142 mmol/L (136-145); TSH (W/Ref FT4) 4.13 uIU/mL (0.36-3.74); Total Protein 7.1 g/dL (6.4-8.2)
[2023-07-24 14:41] LABS: Vitamin B12 > 2000 pg/mL (193-986)
[2023-07-24 15:04] LABS: FREE T4 1.06 ng/dL (0.76-1.46)
[2023-07-25 15:08] LABS: Albumin 59.9 % (55.8-66.1); Total Protein 6.6 g/dL (6.3-8.2)
== END 2023-07-24 05:09 | disposition home or self-care (01) ==
LOC: LBO 05:08
PROVIDERS: PCP Internal Medicine; Visit Provider Psychiatry & Neurology Neurology
DX: G62.9 Polyneuropathy, unspecified (principal); E05.90 Thyrotoxicosis, unspecified without thyrotoxic crisis or storm; R94.6 Abnormal results of thyroid function studies
CPT/HCPCS: 36415; 80053; 85027; 82607; 83036; 84165; 84439; 84443

== ENCOUNTER → 2023-07-30 14:02 | Outpatient (BNVA) | payer MEDICARE, OTHER, SELFPAY | PROVIDERS: PCP Internal Medicine; Visit Provider Psychiatry & Neurology Neurology | DX: R20.0 Anesthesia of skin (principal); G25.0 Essential tremor; R26.9 Unspecified abnormalities of gait and mobility; R29.6 Repeated falls | CPT/HCPCS: 99213 ==

== ENCOUNTER → 2023-10-30 12:31 | Outpatient (BNVA) | payer MEDICARE, OTHER, SELFPAY | PROVIDERS: PCP Internal Medicine; Referring Provider Internal Medicine; Visit Provider Psychiatry & Neurology Neurology | DX: R20.0 Anesthesia of skin (principal); G25.0 Essential tremor | CPT/HCPCS: 99213 ==

== ENCOUNTER → 2024-01-22 09:56 | Outpatient (BNVA) | payer MEDICARE, OTHER, SELFPAY | PROVIDERS: PCP Internal Medicine; Referring Provider Internal Medicine; Visit Provider Nurse Practitioner Adult Health | DX: G62.9 Polyneuropathy, unspecified (principal); G56.03 Carpal tunnel syndrome, bilateral upper limbs | CPT/HCPCS: 95911; 99213 ==

== ENCOUNTER → 2024-01-29 11:05 | Outpatient (BNVA) | payer MEDICARE, OTHER, SELFPAY | PROVIDERS: PCP Internal Medicine; Referring Provider Internal Medicine; Visit Provider Psychiatry & Neurology Neurology | DX: R20.0 Anesthesia of skin (principal); G25.0 Essential tremor | CPT/HCPCS: 99213 ==

== ENCOUNTER → 2024-05-01 11:10 | Outpatient (BNVA) | payer MEDICARE, OTHER, SELFPAY | PROVIDERS: PCP Internal Medicine; Referring Provider Internal Medicine; Visit Provider Psychiatry & Neurology Neurology | DX: R56.9 Unspecified convulsions (principal); R25.1 Tremor, unspecified; R29.6 Repeated falls; G62.9 Polyneuropathy, unspecified; R20.0 Anesthesia of skin; R26.9 Unspecified abnormalities of gait and mobility | CPT/HCPCS: 99214 ==

== ENCOUNTER → 2024-05-08 09:26 | Outpatient (BNVA) | payer MEDICARE, OTHER, SELFPAY | PROVIDERS: PCP Internal Medicine; Referring Provider Internal Medicine; Visit Provider Student in an Organized Health Care Education/Training Program | DX: G56.03 Carpal tunnel syndrome, bilateral upper limbs (principal) | CPT/HCPCS: 20526; J1010 ==

== ENCOUNTER 2024-07-23 01:54 | Outpatient (CLI) | payer OTHER, SELFPAY ==
--- NOTE | 2024-07-23 11:38 | DI.RAD_ITS ---
Exam(s) RF BARIUM SWALLOW EXAM: RF BARIUM SWALLOW CLINICAL HISTORY: [id number] R13.10 Dysphagia,unspecified TECHNIQUE: 2D and realtime digital imaging was performed. CONTRAST MATERIAL: Oral barium contrast was administered. COMPARISON: CR CHEST 2 VIEWS PA,LAT from 12/07/2016 FINDINGS: CHEST X-RAY: The heart and pulmonary vasculature are within normal limits. The lungs are clear. No pl eural effusion or pneumothorax is present. The bones are within normal limits for the patient's age. ESOPHAGRAM: The esophagus is patent with no evidence for erosions, fold thickening, strictures, or ma sses. With regards to the motility, there is a normal primary stripping wave. Tertiary contractions w ere noted during the examination. This can be seen with presbyesophagus. There is no hiatal hernia or gastroesophageal reflux. The patient swallowed the barium tablet without difficulty. IMPRESSION: Findings suggestive of presbyesophagus. No esophageal narrowing, hiatal hernia or gastroesophageal r eflux is seen on this examination. RADIATION DOSE DELIVERED: tomi Aranda=16.7 mGy
[2024-07-23] MEDS: Barium Sulfate 700 MG TAB PO (11:44)
[2024-07-23] MEDS: Barium Sulfate 98% W/W 140 ML BTL PO (11:44)
[2024-07-23] MEDS: Barium Sulfate 60% W/V 355 ML BTL PO (11:45)
== END 2024-07-23 02:14 ==
LOC: DI 01:54
PROVIDERS: PCP Internal Medicine; Visit Provider Physician Assistant
DX: R13.10 Dysphagia, unspecified (principal)
CPT/HCPCS: 74221; J3490